=== PATIENT | female | born 1990 | race Caucasian/White ===

== ENCOUNTER 2019-10-16 14:27 | Emergency (ER) | payer OTHER, SELFPAY ==
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
[2019-10-16 14:28] VITALS: BP 137/71; PULSE 72; RESP 18; TEMP 36.4; O2SAT 100
--- NOTE | 2019-10-16 14:34 | PC.NURSE ---
Patient placed in c-collar.
[2019-10-16 14:37] VITALS: BP 137/71; PULSE 72; RESP 16; TEMP 36.4; O2SAT 100
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
== END 2019-10-16 16:15 | disposition home or self-care (01) ==
PROVIDERS: Emergency Provider Emergency Medicine; PCP Emergency Medicine
DX: O26.851 Spotting complicating pregnancy, first trimester (principal); O9A.211 Injury, poisoning and certain other consequences of external causes complicating pregnancy, first trimester; M54.2 Cervicalgia; G89.29 Other chronic pain; Z3A.08 8 weeks gestation of pregnancy; V49.40XA Driver injured in collision with unspecified motor vehicles in traffic accident, initial encounter
CPT/HCPCS: 76801; 99284; L0140

== ENCOUNTER 2020-05-10 20:20 | Observation (INO) | payer OTHER, SELFPAY ==
--- NOTE | 2020-05-10 20:20 | OBADM ---
This patient, Adelita Costa, admitted to the OB room OB Post 116 for observation. Patient/family oriented to hospital policies and general routines including ID bracelet, bed and alarms, visiting hours, pain management, procedures, bathroom and other care routines, personal items, smoking policy, room service/diet, and visiting hours. Patient/Family are encouraged to report perceived risks to care and to ask questions if they do not understand what they are told or what they should do.
[2020-05-10 21:30] VITALS: TEMP 36.3
[2020-05-10 21:39] VITALS: BP 126/80; PULSE 91
[2020-05-10 21:46] VITALS: BP 122/85; PULSE 92
[2020-05-10 22:01] VITALS: BP 130/81; PULSE 96
[2020-05-10 22:16] VITALS: BP 126/83; PULSE 94
[2020-05-10 22:31] VITALS: BP 118/77; PULSE 89
[2020-05-11 04:46] VITALS: BMI 33.7
--- NOTE | 2020-05-25 07:14 | PM.OBTRLD ---
OB - Triage/Final Diagnosis Visit Information Reason for evaluation: threatened labor
== END 2020-05-10 23:15 | disposition home or self-care (01) ==
PROVIDERS: Admitting Provider Obstetrics & Gynecology; PCP Emergency Medicine; Visit Provider Obstetrics & Gynecology
DX: O47.1 False labor at or after 37 completed weeks of gestation (principal); Z3A.37 37 weeks gestation of pregnancy
CPT/HCPCS: G0378; G0379

== ENCOUNTER 2020-07-18 10:05 | Emergency (ER) | payer OTHER, SELFPAY ==
--- NOTE | ~2020-07-18 | CT_ITS ---
EXAMINATION: CT abdomen pelvis w con INDICATION: Left-sided abdominal pain, hematochezia TECHNIQUE: Computed tomographic images of the abdomen and pelvis were obtained after the administrati on of 100 cc of Omnipaque 350 intravenous contrast. The dose-length product (DLP) was 597.20 mGy-cm. Automated exposure control and iterative reconstruction technique were employed. COMPARISON: None available FINDINGS: The lung bases are clear. The heart size is normal. The liver, spleen, pancreas, gallbladde r, and adrenal glands are normal. The kidneys are unremarkable. No pathologically enlarged abdominal or pelvic lymph nodes are identified. There is no free intraperitoneal gas or evidence of bowel obstr uction. A retroaortic left renal vein is noted. There is a trace volume of pelvic ascites. There are areas of subtle fat stranding in the left pericolic gutter. There is a fat-containing umbilical herni a. IMPRESSION: 1. Areas of subtle fat stranding in the left pericolic gutter of unclear significance, possibly refle cting localized inflammation. Reviewed, dictated and finalized at location A. SPORTATION INSPECTOR IMPRESSION: 1. Areas of subtle fat stranding in the left pericolic gutter of unclear signif icance, possibly reflecting localized inflammation.
[2020-07-18 10:10] VITALS: BP 116/77; PULSE 80; RESP 17; TEMP 36.3; O2SAT 98
[2020-07-18 10:29] LABS: Basophils Absolute Auto 0.1 K/mm3 (0.0-0.1); Basophils Percent Auto 0.6 % (0.2-1.2); Eosinophils Absolute Auto 0.1 K/mm3 (0-0.3); Eosinophils Percent Auto 1.2 % (0-4.4); Hemoglobin 14.2 g/dL (12.0-15.0); Immature Granulocyte Absolute 0.03 K/mm3 (0.00-0.031); Immature Granulocyte Percent A 0.3 % (0-0.5); Lymphocytes Absolute Auto 2.17 K/mm3 (0.9-3.2); Lymphocytes Percent Auto 24.5 % (18.3-44.2); Mean Corpuscular HGB Conc 31.6 g/dl (32-36); Mean Corpuscular Hemoglobin 28.6 pg (26-34); Mean Corpuscular Volume 90.7 fl (80-100); Mean Platelet Volume 10.5 fl (7.4-10.4); Monocytes Absolute Auto 0.5 K/mm3 (0.1-0.6); Neutrophils Percent Auto 67.4 % (45.5-73.1); Platelet Count Result 335 k/mm3 (150-375); Red Blood Count 4.96 M/mm3 (4.2-5.4); Red Cell Distribution Width 14.4 % (11.5-14.5); White Blood Count 8.9 K/mm3 (4.5-10.0)
[2020-07-18 10:33] LABS: Add Urine Microscopic? YES; Appearance Urine Clear (Clear); Bilirubin Urine Negative (Negative); Blood Urine Negative (Negative); Color Urine Yellow (Yellow); Glucose Urine UA Negative (Negative); Ketones Urine Negative (Negative); Leukocyte Esterase Ur 1+ LEU/UL (Negative); Mucus Urine Rare /lpf; Nitrate Urine Negative (Negative); Protein Urine 1+ mg/dL (Negative); Specific Grav Ur 1.017 (1.001-1.035); Squamous Epithelial Cell Urine Occasional /hpf (Few); Urobilinogen Urine Negative mg/dL (<2.0); WBC Urine 16-20 /hpf
[2020-07-18 10:41] LABS: Alanine Aminotransferase 25 U/L (4-35); Albumin Level 4.7 g/dL (3.5-5.1); Alkaline Phosphatase 79 U/L (38-126); Anion Gap 10 mmol/L (8-16); Aspartate Amino Transferase 27 U/L (14-36); Bilirubin,Total 0.4 mg/dL (0.2-1.3); Blood Urea Nitrogen 10 mg/dL (7-17); Calcium 9.6 mg/dL (8.4-10.2); Carbon Dioxide 27 mmol/L (22-30); Chloride 104 mmol/L (98-107); Estimated CRCL calculation 116 ml/min; Estimated Glomerular Filt Rate > 60; Glucose 93 mg/dL (65-105); Lipase 64 U/L (23-300); Potassium 3.9 mmol/L (3.4-5.0); Sodium 141 mmol/L (137-145)
--- NOTE | 2020-07-18 11:03 | ED.ABDPAIN ---
HPI - Abdominal Pain General Chief Complaint: Abdominal Pain Stated Complaint: ABD pain 6 weeks post partumn Time Seen by Provider: 07/18/20 10:15 Source: patient Mode of arrival: ambulatory Limitations: no limitations History of Present Illness HPI narrative: This is a 29-year-old female that presents to the emergency department for left-sided abdominal pain x3 days. Reports the pain is constant and sharp. It is worse with palpation and certain movement. Also reports she has had bright red blood in the stool. Does report history of constipation for which she takes Colace daily. Reports some nausea. Reports she is 6 weeks and had a delivery. Her doctor is Dr. Ferrara. Denies fever, vomiting, dysuria, hematuria, or diarrhea. Related Data Allergies Allergy/AdvReac Type Severity Reaction Status Date / Time No Known Allergies Allergy Other Uncoded 07/18/20 10:14 Review of Systems Review of Systems: Narrative: CONSTITUTIONAL: Denies fever GASTROINTESTINAL: Reports abdominal pain, nausea. Denies vomiting, or diarrhea. GENITOURINARY: Denies dysuria or hematuria. All systems reviewed & are unremarkable except as noted in HPI and below PMFSH Surgical History Surgical History (Updated 07/18/20 @ 11:11 by Sangeeta Bundy PA-C) History of section History of tonsillectomy Social History Social History (Updated 07/18/20 @ 11:10 by Sangeeta Bundy PA-C) Smoking status: Never smoker Substance use: never Gender identity (if verbalized by the patient): Female Exam Narrative: Exam Narrative: GENERAL: Well-appearing, well-nourished, and in no acute distress. HEAD: Normocephalic, atraumatic. EYES: EOMI. CHEST: Clear to auscultation. No respiratory distress. No wheezes rales or rhonchi HEART: Regular rate and rhythm. No murmur heard. Normal peripheral pulses. ABDOMEN: Soft, nondistended, normal active bowel sounds. Tender to palpation of left mid abdomen, without guarding. No CVA tenderness EXTREMITIES: Normal range of motion. No edema. SKIN: Warm, dry, no rash. NEURO: No focal deficits. Alert and oriented x3. PSYCH: Normal mood and affect RECTAL: Nonthrombosed hemorrhoid present, no active bleeding Course Vital Signs Vital signs: Vital Signs Temperature 97.4 F L 07/18/20 10:10 Pulse Rate 80 07/18/20 10:10 Respiratory Rate 17 07/18/20 10:10 Blood Pressure 116/77 07/18/20 10:10 Pulse Oximetry 98 07/18/20 10:10 Temperature 97.4 F L 07/18/20 10:10 Pulse Rate 80 07/18/20 10:10 Respiratory Rate 17 07/18/20 10:10 Blood Pressure 116/77 07/18/20 10:10 Pulse Oximetry 98 07/18/20 10:10 MDM - Abdominal Pain MDM Narrative Medical decision making narrative: Patient presents the emergency department for left-sided abdominal pain for the last 3 days. Is 6 weeks and had delivery. Patient is afebrile and nontoxic-appearing. CBC and metabolic panel are normal. Lipase is normal. UA with 16-20 white blood cells and 1+ leuk esterase, also with squamous epithelial cells. Patient does not have any urinary symptoms. We will send this for culture. CT scan abdomen and pelvis shows nonspecific fat stranding in the left pericolic gutter of unclear significance. Spoke with radiologist about this finding, could be from retraction instrumentation due to her . Pain is worse with movement, spoke with patient about this possibly being due to her continuing to heal after her surgery. Wanted to get a hold of her FACILITATOR to make aware of work-up and ensure follow-up. Patient would like to be discharged. She was instructed to return at any time for any worsening symptoms or concerns. She is to follow-up with her FACILITATOR Lab Data Attestation: I reviewed the patient's lab results. Result diagrams: 07/18/20 10:18 07/18/20 10:18 Labs: Lab Results 07/18/20 07/18/20 07/18/20 Range/Units 10:18 10:18 10:18 WBC 8.9 (4.5-
--- NOTE | 2020-07-18 11:08 | PC.NURSE ---
received report from May SHAW. resting on stretcher. all labs resulted. waiting to get CT done. has call light in reach. denies needs.
--- NOTE | 2020-07-18 12:39 | PC.NURSE ---
CT resulted. waiting for further orders vs disposition from provider.
--- NOTE | 2020-07-18 13:50 | PC.NURSE ---
provider at bedside to review test results.
[2020-07-18 14:08] VITALS: BP 112/70; PULSE 78; RESP 18; TEMP 36.6; O2SAT 100
== END 2020-07-18 14:10 | disposition home or self-care (01) ==
PROVIDERS: Emergency Provider Emergency Medicine; PCP Emergency Medicine
DX: O90.89 Other complications of the puerperium, not elsewhere classified (principal); R10.9 Unspecified abdominal pain
CPT/HCPCS: 36415; 74177; 80053; 81001; 81025; 83690; 85025; 87086; 99284; Q9967

== ENCOUNTER 2021-08-08 11:19 | Emergency (ER) | payer OTHER, SELFPAY ==
[2021-08-08 11:22] VITALS: BP 118/78; PULSE 98; RESP 18; TEMP 36.1; O2SAT 99
[2021-08-08] MEDS: ONDANSETRON INJ 4 MG/2 ML VIAL IV PUSH (11:51)
--- NOTE | 2021-08-08 11:51 | ED.NAVMDI ---
HPI - Nausea/Vomiting/Diarrhea General Chief complaint: Nausea/Vomiting/Diarrhea Stated complaint: 16 weeks pg vomiting Time Seen by Provider: 08/08/21 11:33 Source: patient Mode of arrival: ambulatory Limitations: no limitations History of Present Illness HPI Narrative: This is a 30-year-old G3, P1 about 16 weeks that presents to the emergency department for nausea, vomiting and diarrhea. Reports it seems as though viral illnesses going through the family. Her mother and significant other are also sick. Reports since last night she has had several episodes of vomiting. She has not been able to keep anything down today. Her OB is Dr. Ferrara. Denies fever, dysuria, vaginal bleeding, or pelvic cramping. Related Data Allergies Allergy/AdvReac Type Severity Reaction Status Date / Time No Known Allergies Allergy Other Uncoded 05/07/21 12:07 Review of Systems Review of Systems: CONSTITUTIONAL: Denies fever GASTROINTESTINAL: Reports abdominal pain, nausea, vomiting, and diarrhea. GENITOURINARY: Denies dysuria All systems reviewed & are unremarkable except as noted in HPI and below PMFSH Past Medical History Medical History (Updated 08/08/21 @ 15:41 by Sangeeta Bundy PA-C) deliv due to previous difficult deliv, deliv, curr hospitaliz Surgical History Surgical History History of section History of tonsillectomy Social History Social History (Updated 05/07/21 @ 12:05 by Tara Cortes CNA) Smoking status: Never smoker Second hand tobacco smoke exposure: No Alcohol intake: current Alcohol use details: a glass of wine here and there Substance use: never Gender identity (if verbalized by the patient): Female Exam Narrative: GENERAL: Well-appearing, well-nourished, and in no acute distress. HEAD: Normocephalic, atraumatic. EYES: EOMI. CHEST: Clear to auscultation. No respiratory distress. No wheezes rales or rhonchi HEART: Regular rate and rhythm. No murmur heard. Normal peripheral pulses. ABDOMEN: Gravid, nontender, nondistended, normal active bowel sounds. EXTREMITIES: Normal range of motion. No edema. SKIN: Warm, dry, no rash. NEURO: No focal deficits. Alert and oriented x3. PSYCH: Normal mood and affect Course Consultations Consultation #1: Spoke with patient's OB about work-up who will follow-up in clinic Date: 08/08/21 Time: 15:00 Vital Signs Vital signs: Vital Signs Temperature 97.0 F L 08/08/21 11:22 Pulse Rate 98 08/08/21 11:22 Respiratory Rate 18 08/08/21 11:22 Blood Pressure 118/78 08/08/21 11:22 Pulse Oximetry 99 08/08/21 11:22 Temperature 97.0 F L 08/08/21 11:22 Pulse Rate 98 08/08/21 11:22 Respiratory Rate 18 08/08/21 11:22 Blood Pressure 118/78 08/08/21 11:22 Pulse Oximetry 99 08/08/21 11:22 MDM - Nausea/Vomiting/Diarrhea MDM Narrative Medical decision making narrative: Patient presents emergency department for nausea, vomiting and diarrhea. She is afebrile and nontoxic-appearing. Her vitals are stable. CBC with mild leukocytosis to 13.4. Metabolic panel and lipase without concerning findings. UA without evidence of infection. Does show some dehydration. Patient hydrated with 2 L of IV fluids in the ED. Given doses of antiemetics with relief. Able to tolerate p.o. challenge. Normal heart tones. Spoke with patient's OB about work-up who will follow-up in clinic. Patient is stable and felt appropriate for further outpatient evaluation. She was given warnings to return to the ER Lab Data Attestation: I reviewed the patient's lab results. Result diagrams: 08/08/21 11:50 08/08/21 11:50 Labs: Lab Results 08/08/21 08/08/21 08/08/21 Range/Units 11:50 11:50 11:50 WBC 13.4 H (4.5-10.0) K/mm3 RBC 4.48 (4.2-5.4) M/mm3 Hgb 13.9 (12.0-15.0) g/dL Hct 39.9 (37.0-47.0) % MCV 89.1 (80-100) fl MCH
[2021-08-08] MEDS: FAMOTIDINE 20 MG/2 ML VIAL IV PUSH (11:52)
[2021-08-08] MEDS: SODIUM CHLORIDE 0.9% IV 1,000 ML 999 ML IV CONT ×2 (11:52→13:04)
[2021-08-08 12:10] LABS: Basophils Percent Auto 0.2 % (0.2-1.2); Eosinophils Absolute Auto 0.1 K/mm3 (0-0.3); Eosinophils Percent Auto 0.4 % (0-4.4); Hematocrit 39.9 % (37.0-47.0); Hemoglobin 13.9 g/dL (12.0-15.0); Immature Granulocyte Absolute 0.05 K/mm3 (0.00-0.031); Immature Granulocyte Percent A 0.4 % (0-0.5); Lymphocytes Absolute Auto 0.75 K/mm3 (0.9-3.2); Lymphocytes Percent Auto 5.6 % (18.3-44.2); Mean Corpuscular HGB Conc 34.8 g/dl (32-36); Mean Corpuscular Volume 89.1 fl (80-100); Mean Platelet Volume 10.7 fl (7.4-10.4); Monocytes Absolute Auto 0.5 K/mm3 (0.1-0.6); Neutrophils Absolute Auto 11.9 K/mm3 (1.3-6.7); Neutrophils Percent Auto 89.4 % (45.5-73.1); Platelet Count Result 304 k/mm3 (150-375); Red Blood Count 4.48 M/mm3 (4.2-5.4); Red Cell Distribution Width 12.4 % (11.5-14.5); White Blood Count 13.4 K/mm3 (4.5-10.0)
[2021-08-08 12:20] LABS: Alanine Aminotransferase 10 U/L (4-35); Albumin Level 4.3 g/dL (3.5-5.1); Alkaline Phosphatase 71 U/L (38-126); Anion Gap 9 mmol/L (8-16); Aspartate Amino Transferase 17 U/L (14-36); Bilirubin,Total 0.7 mg/dL (0.2-1.3); Blood Urea Nitrogen 7 mg/dL (7-17); Calcium 9.2 mg/dL (8.4-10.2); Carbon Dioxide 24 mmol/L (22-30); Chloride 100 mmol/L (98-107); Estimated CRCL calculation 164 ml/min; Estimated Glomerular Filt Rate > 60; Glucose 91 mg/dL (65-110); Lipase 61 U/L (23-300); Potassium 3.9 mmol/L (3.4-5.0); Sodium 133 mmol/L (137-145)
[2021-08-08 12:32] LABS: Add Urine Microscopic? YES; Appearance Urine Cloudy (Clear); Bacteria Urine Trace /hpf; Bilirubin Urine Negative (Negative); Blood Urine Negative (Negative); Color Urine Yellow (Yellow); Glucose Urine UA Negative (Negative); Ketones Urine 1+ mg/dL (Negative); Leukocyte Esterase Ur Negative LEU/UL (Negative); Mucus Urine Few /lpf; Nitrate Urine Negative (Negative); Protein Urine 1+ mg/dL (Negative); Squamous Epithelial Cell Urine Many /hpf (Few); WBC Urine 0-3 /hpf
[2021-08-08 13:35] VITALS: BP 126/88; PULSE 80; RESP 15; O2SAT 99
[2021-08-08] MEDS: diphenhydrAMINE HCl INJ 50 MG/ML VIAL 25 MG IV PUSH (14:07)
[2021-08-08] MEDS: METOCLOPRAMIDE HCL INJ 10 MG/2 ML VIAL IV PUSH (14:07)
[2021-08-08] MEDS: SODIUM CHLORIDE 0.9% IV 50 ML 400 ML (14:08)
[2021-08-08 15:47] VITALS: BP 119/64; PULSE 80; RESP 16; O2SAT 99
== END 2021-08-08 15:50 | disposition home or self-care (01) ==
PROVIDERS: Emergency Provider Emergency Medicine; PCP Internal Medicine
DX: O21.9 Vomiting of pregnancy, unspecified (principal); Z3A.16 16 weeks gestation of pregnancy
CPT/HCPCS: 36415; 80053; 81001; 83690; 85025; 96361; 96365; 96366; 96375; 99284; J0131; J1200; J2405; J2765; J7030

== ENCOUNTER 2022-08-09 07:00 | Outpatient (NON) | payer OTHER, SELFPAY | END 2022-08-09 07:01 | disposition home or self-care (01) | LOC: ANHLAB 08-10 12:34 | PROVIDERS: PCP Internal Medicine; Visit Provider Nurse Practitioner | DX: D22.39 Melanocytic nevi of other parts of face (principal) | CPT/HCPCS: 88305 ==

== ENCOUNTER → 2022-12-29 11:34 | Outpatient (CLI) | payer OTHER, SELFPAY ==
--- NOTE | ~2022-12-29 | MR_ITS ---
MRI of the cervical spine Clinical History: Cervicalgia Technique: Axial T2-weighted and gradient images, and sagittal T1-weighted, T2-weighted, and STIR veronica ges were acquired. Findings: There is no fracture or subluxation of the cervical spine. Vertebral bodies maintain normal height and alignment. No suspicious bone marrow signal abnormality seen. There is minimal degenerative disc change at C4-C5 and C5-C6. No disc bulge or herniation seen at any cervical level. No spinal canal stenosis, cord compression, or neural foraminal narrowing identified in the cervical spine. No abnormal signal seen in the spinal cord. Paravertebral soft tissues are unremarkable. Impression: Minimal degenerative disc change at C4-C5 and C5-C6, otherwise unremarkable exam. Reviewed, dictated and finalized at location M. Impression: Minimal degenerative disc change at C4-C5 and C5-C6, otherwise unremarkable jeff moscoso
== END ==
PROVIDERS: PCP Internal Medicine; Visit Provider Nurse Practitioner Family
DX: M54.2 Cervicalgia (principal)
CPT/HCPCS: 72141

== ENCOUNTER 2023-02-19 08:23 | Emergency (ER) | payer OTHER, SELFPAY ==
--- NOTE | ~2023-02-19 | CT_ITS ---
EXAMINATION: CT abdomen pelvis wo con DATE: 02/19/2023 10:48 INDICATION: Flank pain. Hematuria. TECHNIQUE: Computed tomography (CT) of the abdomen and pelvis was performed without intravenous contr ast. The dose-length product was 421.98 mGy-cm. Automated exposure control and iterative reconstructi on technique were employed. COMPARISON: None. FINDINGS: Lung bases are unremarkable. No significant pleural or pericardial effusion. Small fat-cont aining umbilical hernia. Small amount of free fluid in the pelvis. There is a 3 mm nonobstructing left renal stone. Bladder is decompressed. The liver, spleen, pancreas, adrenal glands and right kidney are unremarkable. No free air or free fl uid. Gallbladder is present. No free air. Nonobstructive bowel gas pattern. There are small ileocolic lymph nodes, likely reactive. No significant vascular abnormality. No retroperitoneal lymphadenopath y. IMPRESSION: 1. Nonobstructing left nephrolithiasis. Reviewed, dictated and finalized at location A.
[2023-02-19 08:25] VITALS: BP 121/75; PULSE 71; RESP 16; TEMP 36.2; O2SAT 98
[2023-02-19 08:52] LABS: Basophils Absolute Auto 0.1 K/mm3 (0.0-0.1); Basophils Percent Auto 0.8 % (0.2-1.2); Eosinophils Absolute Auto 0.1 K/mm3 (0-0.3); Eosinophils Percent Auto 0.8 % (0-4.4); Hematocrit 42.1 % (37.0-47.0); Hemoglobin 13.7 g/dL (12.0-15.0); Immature Granulocyte Absolute 0.01 K/mm3 (0.00-0.031); Immature Granulocyte Percent A 0.1 % (0-0.5); Lymphocytes Absolute Auto 2.28 K/mm3 (0.9-3.2); Lymphocytes Percent Auto 32.2 % (18.3-44.2); Mean Corpuscular HGB Conc 32.5 g/dl (32-36); Mean Corpuscular Hemoglobin 29.9 pg (26-34); Mean Corpuscular Volume 91.9 fl (80-100); Mean Platelet Volume 10.2 fl (7.4-10.4); Monocytes Absolute Auto 0.4 K/mm3 (0.1-0.6); Monocytes Percent Auto 5.4 % (2.6-8.5); Neutrophils Absolute Auto 4.3 K/mm3 (1.3-6.7); Neutrophils Percent Auto 60.7 % (45.5-73.1); Platelet Count Result 277 k/mm3 (150-375); Red Blood Count 4.58 M/mm3 (4.2-5.4); Red Cell Distribution Width 12.5 % (11.5-14.5); White Blood Count 7.1 K/mm3 (4.5-10.0)
[2023-02-19 09:01] LABS: Alanine Aminotransferase 22 U/L (6-35); Albumin Level 4.4 g/dL (3.5-5.1); Alkaline Phosphatase 40 U/L (38-126); Anion Gap 6 mmol/L (8-16); Aspartate Amino Transferase 21 U/L (14-36); Bilirubin,Total 0.6 mg/dL (0.2-1.3); Blood Urea Nitrogen 14 mg/dL (7-17); Calcium 9.1 mg/dL (8.4-10.2); Carbon Dioxide 32 mmol/L (22-30); Chloride 101 mmol/L (98-107); Estimated CRCL calculation 98 ml/min; Estimated Glomerular Filt Rate > 60; Glucose 101 mg/dL (65-110); Sodium 139 mmol/L (137-145)
[2023-02-19] MEDS: ONDANSETRON INJ 4 MG/2 ML VIAL IV PUSH (09:02)
[2023-02-19] MEDS: SODIUM CHLORIDE 0.9% IV 1,000 ML 999 ML IV CONT (09:02)
[2023-02-19 09:08] LABS: Atypical Lymphocytes Present; Platelet Estimate Adequate (Adequate); Schistocytes None Seen (NORMAL)
[2023-02-19 09:30] LABS: Add Urine Microscopic? YES; Appearance Urine Cloudy (Clear); Bacteria Urine 1+ /hpf; Bilirubin Urine 1+ (Negative); Blood Urine Negative (Negative); Color Urine Dark Yellow (Yellow); Glucose Urine UA Negative (Negative); Ketones Urine Negative (Negative); Leukocyte Esterase Ur 1+ LEU/UL (Negative); Need Manual Microscopic Reviewed; Nitrate Urine Positive (Negative); Non Pathogenic Casts 0-2; Protein Urine 1+ mg/dL (Negative); Specific Grav Ur 1.019 (1.001-1.035); Squamous Epithelial Cell Urine Many /hpf (Few); WBC Urine 0-5 /hpf; pH Urine 6.5 (5.0-9.0)
[2023-02-19 09:37] VITALS: BP 112/74; PULSE 64; RESP 18; O2SAT 100
[2023-02-19 10:39] VITALS: BP 110/69; PULSE 67; RESP 20; O2SAT 98
--- NOTE | 2023-02-19 12:02 | ED.GENADULT ---
HPI - General Adult General Chief complaint: Urogenital-Female Stated complaint: kidney infection Time Seen by Provider: 02/19/23 08:28 History of Present Illness HPI narrative: Patient is a 32-year-old female who presents ER with concerns for UTI. Began having burning urination hematuria yesterday. Associated with epigastric pain tachycardia and nausea. No fevers or chills or sweats. She took some leftover ciprofloxacin as well as Azo to treat her discomfort. No diarrhea. No additional concerns. Related Data Allergies Allergy/AdvReac Type Severity Reaction Status Date / Time No Known Allergies Allergy Other Uncoded 02/19/23 08:46 Review of Systems Review of Systems: All systems reviewed & are unremarkable except as noted in HPI and below Constitutional: Constitutional: Denies chills and Denies fever(s) Gastrointestinal: Gastrointestinal: Reports abdominal pain, Denies diarrhea, Reports nausea and Denies vomiting Genitourinary: Genitourinary: Reports hematuria, Reports nocturia, Reports dysuria and Denies flank pain PMFSH Past Medical History Medical History (Reviewed 01/09/23 @ 15:05 by Adilene Ha [facility]) Axillary abscess Cervicalgia deliv due to previous difficult deliv, deliv, curr hospitaliz Upper back pain, chronic Surgical History Surgical History (Reviewed 01/09/23 @ 15:05 by Adilene Ha [facility]) History of section History of tonsillectomy Social History Social History (Reviewed 01/09/23 @ 15:05 by Adilene Ha [facility]) Smoking status: Never smoker Second hand tobacco smoke exposure: No Alcohol intake: current Alcohol use details: a glass of wine here and there Substance use: never Lack of Transportation: No Lack of Food: Never True Current Housing: I Have Housing Concerned About Future Housing: No Difficulty Paying Gas/Electric Bills: No Difficulty Paying for Meds: No Currently Unemployed: No Education: Bachelor's Degree Difficulty w/ Childcare or Family Care: No Gender identity (if verbalized by the patient): Female Course Course Emergency Course: Patient resting comfortably. Informed of results. Will give 3 days of antibiotics Estraguard burst will treat her UTI. Patient could have passed a kidney stone but she does have a nephrolithiasis. Vital Signs Vital signs: Vital Signs Temperature 97.1 F L 02/19/23 08:25 Pulse Rate 71 02/19/23 08:25 Respiratory Rate 16 02/19/23 08:25 Blood Pressure 121/75 02/19/23 08:25 Pulse Oximetry 98 02/19/23 08:25 Oxygen Delivery Room Air 02/19/23 08:25 Temperature 97.1 F L 02/19/23 08:25 Pulse Rate 67 02/19/23 10:39 Respiratory Rate 20 02/19/23 10:39 Blood Pressure 110/69 02/19/23 10:39 Pulse Oximetry 98 02/19/23 10:39 Oxygen Delivery Room Air 02/19/23 08:25 Medical Decision Making Vital Signs Vital Signs: Vital Signs Temperature 97.1 F L 02/19/23 08:25 Pulse Rate 71 02/19/23 08:25 Respiratory Rate 16 02/19/23 08:25 Blood Pressure 121/75 02/19/23 08:25 Pulse Oximetry 98 02/19/23 08:25 Oxygen Delivery Room Air 02/19/23 08:25 Temperature 97.1 F L 02/19/23 08:25 Pulse Rate 67 02/19/23 10:39 Respiratory Rate 20 02/19/23 10:39 Blood Pressure 110/69 02/19/23 10:39 Pulse Oximetry 98 02/19/23 10:39 Oxygen Delivery Room Air 02/19/23 08:25 Lab Data 02/19/23 08:41 02/19/23 08:41 Labs: Lab Results 02/19/23 02/19/23 Range/Units 08:41 09:07 WBC 7.1 (4.5-10.0) K/mm3 RBC 4.58 (4.2-5.4) M/mm3 Hgb 13.7 (12.0-15.0) g/dL Hct 42.1 (37.0-47.0) % MCV 91.9 (80-100) fl MCH 29.9 (26-34) pg MCHC 32.5 (32-36) g/dl RDW 12.5 (11.5-14.5) % Plt Count 277 (150-375) k/mm3 MPV 10.2 (7.4-10.4) fl Immature Gran % (Auto) 0.1 (0-0.5) % Neut % (Auto) 60.7 (45.5-73.1) % Lymph % (Auto) 32.2 (18.3-44.2) % [place] % (Auto) 5.4 (2.6-8.5) %
[2023-02-19 12:38] VITALS: BP 130/84; PULSE 76; RESP 16; O2SAT 98
== END 2023-02-19 12:39 | disposition home or self-care (01) ==
PROVIDERS: Emergency Provider Emergency Medicine; PCP Internal Medicine
DX: N39.0 Urinary tract infection, site not specified (principal); N20.0 Calculus of kidney
CPT/HCPCS: 36415; 74176; 80053; 81001; 81025; 85025; 96361; 96374; 99284; J2405; J7030

== ENCOUNTER 2024-06-10 14:30 | Emergency (ER) | payer OTHER, SELFPAY ==
--- NOTE | 2024-06-10 14:31 | ED.WOUNDLAC ---
HPI - Wound/Laceration General Chief Complaint: Wound/Laceration Stated Complaint: Cut Hand Time Seen by Provider: 06/10/24 14:31 Source: patient Mode of arrival: ambulatory Limitations: no limitations History of Present Illness HPI narrative: Kimmy is a 33-year-old female patient presenting to the clinic today with complaints of a left palm hand laceration. She reports she cut it approximately 30 minutes on a chisel. Tetanus last was 2019. Bleeding is controlled. Related Data Allergies Allergy/AdvReac Type Severity Reaction Status Date / Time No Known Allergies Allergy Other Uncoded 06/10/24 14:35 Review of Systems Review of Systems: Pertinent positives per HPI. Patient denies any fever, chills, rash, headache, visual changes, dizziness, cough, runny nose, sore throat, shortness of breath, chest pain, palpitations, nausea, vomiting, diarrhea, constipation, abdominal pain, or any urinary issues. PMFSH Past Medical History Medical History Axillary abscess Cervicalgia deliv due to previous difficult deliv, deliv, curr hospitaliz Upper back pain, chronic Surgical History Surgical History H/O gynecological procedure IUD insertion/removal History of section x 2 History of hysteroscopy D & C History of tonsillectomy Social History Social History Smoking status: Never smoker Second hand tobacco smoke exposure: No Alcohol intake: current Alcohol use details: a glass of wine here and there Substance use: never Lack of Transportation: No Lack of Food: Never True Current Housing: I Have Housing Concerned About Future Housing: No Difficulty Paying Gas/Electric Bills: No Difficulty Paying for Meds: No Currently Unemployed: No Education: Bachelor's Degree Difficulty w/ Childcare or Family Care: No Gender identity (if verbalized by the patient): Female Comments At the time of my signature, I reviewed and agree with the nursing past medical, surgical, social, and family history. There is no relevant family history pertinent to the patient complaint. Exam Narrative: General: Well-developed, well nourished, in no apparent distress Head: Normocephalic, atraumatic. Cardio: Regular rate and rhythm, s1 and s2 normal, no murmur appreciated. Resp: Clear to auscultation bilaterally, no rhonchi, rales, wheezing or rubs. Integumentary: [place], warm, and dry, 1 cm laceration with mild gaping to the left palm proximal of the left thumb. Course Course Emergency Course: Portions of this record may have been created with voice recognition software. Level of Care: Express Care Visit Vital Signs Vital signs: Vital signs reviewed Procedures Laceration Laceration 1: Date: 06/10/24 Site: hand Side (If applicable): left Size (cm): 1 Description: linear Depth: simple, single layer Local Anesthetic: lidocaine 1% Amount of anesthesia used (mL): 1 Pre-repair: wound explored and irrigated ====== Skin Level ====== Skin layer closed with: nylon Size (cm): 5-0 Number of sutures: 3 Technique: simple, interrupted ====== Subcutaneous Layer ====== ====== Muscle Layer ====== ====== Tendon Layer ====== Dressing: Verbal consent obtained for laceration repair. Risk and benefits explained and patient voiced understanding. Area was cleansed with antiseptic wound wash and a 27 gauge needle was then used to instill (1) ml of 1% lidocaine without epi into the wound edges. Area was prepped and draped using sterile technique. A 5-0 suture on a p needle was used to place (3) interrupted sutures bringing the wound edges together- well approximated. Patient tolerated procedure well. Triple antibiotic oi
[2024-06-10 14:37] VITALS: BP 126/80; PULSE 90; RESP 18; TEMP 36.3; O2SAT 98
[2024-06-10] MEDS: TETANUS,DIPHTHERIA,AC PERTUSSIS ADULT (0.5 ML) BOOSTRIX IM (15:03)
== END 2024-06-10 15:18 | disposition home or self-care (01) ==
PROVIDERS: Emergency Provider Nurse Practitioner Family; PCP Internal Medicine
DX: S61.412A Laceration without foreign body of left hand, initial encounter (principal); W27.0XXA Contact with workbench tool, initial encounter; Z23 Encounter for immunization
CPT/HCPCS: 12001; 90471; 90715; 99212; G0463

== ENCOUNTER 2024-06-23 08:50 | Emergency (ER) | payer OTHER, SELFPAY ==
[2024-06-23 09:01] VITALS: BP 115/82; PULSE 98; RESP 16; TEMP 36.9; O2SAT 97
--- NOTE | 2024-06-23 09:57 | ED.URI ---
HPI - URI/Sore Throat General Chief Complaint: Upper Respiratory Infection Stated Complaint: Cough/Sore Throat Source: patient Mode of arrival: ambulatory Limitations: no limitations History of Present Illness HPI Narrative: 33 y/o female presented for c/o cough and chest congestion, sore throat, and head pressure x12 days. Taking mucinex. denies sob, wheezing, n/v/d/f/c. Related Data Allergies Allergy/AdvReac Type Severity Reaction Status Date / Time No Known Allergies Allergy Other Uncoded 06/10/24 14:35 Review of Systems Review of Systems: CONSTITUTIONAL: Denies body aches, fever, chills, or sweats. EYES: Denies visual changes, redness, or discharge. ENT: Denies rhinorrhea, congestion, reports sore throat, bilateral otalgia. CARDIOVASCULAR: Denies chest pain, palpitations, or edema. RESPIRATORY: Reports cough, denies sob, wheezing. GASTROINTESTINAL: Denies abdominal pain, nausea, vomiting, or diarrhea. 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, deliv, curr hospitaliz Upper back pain, chronic Surgical History Surgical History H/O gynecological procedure IUD insertion/removal History of section x 2 History of hysteroscopy D & C History of tonsillectomy Social History Social History Smoking status: Never smoker Second hand tobacco smoke exposure: No Alcohol intake: current Alcohol use details: a glass of wine here and there Substance use: never Lack of Transportation: No Lack of Food: Never True Current Housing: I Have Housing Concerned About Future Housing: No Difficulty Paying Gas/Electric Bills: No Difficulty Paying for Meds: No Currently Unemployed: No Education: Bachelor's Degree Difficulty w/ Childcare or Family Care: No Gender identity (if verbalized by the patient): Female Comments At time of signature, I have reviewed and agree with nursing past medical, surgical, social and family history unless otherwise noted. Please see nursing chart for further information. There is no relevant family history pertinent to the presenting complaint Exam Narrative: GENERAL: mildly ill-appearing, in no acute distress. EYES: EOMI. No redness or drainage. Conjunctivae normal. ENT: Mucous membranes pink and moist. No rhinorrhea. TMs normal bilaterally. Throat normal. Uvula midline. NECK: Normal AROM. Supple. CHEST: No respiratory distress. mild coarse sounds to right lung hall, otherwise clear. HEART: Regular rate and rhythm. No murmur appreciated. SKIN: Warm, dry, no rash. Capillary refill normal. Normal skin turgor. NEURO: Alert and oriented x3. Gait steady. PSYCH: Normal affect. Course Course Emergency Course: Patient is aware of diagnosis, understands and agrees to treatment plan. Anticipatory guidance given. Patient agrees to follow-up as directed and is aware of reasons to seek care at the emergency department. Portions of this record may have been created with voice recognition software Level of Care: Express Care Visit Vital Signs Vital signs: Vital Signs Temperature 98.5 F 06/23/24 09:01 Pulse Rate 98 06/23/24 09:01 Respiratory Rate 16 06/23/24 09:01 Blood Pressure 115/82 06/23/24 09:01 Pulse Oximetry 97 06/23/24 09:01 Temperature 98.5 F 06/23/24 09:01 Pulse Rate 98 06/23/24 09:01 Respiratory Rate 16 06/23/24 09:01 Blood Pressure 115/82 06/23/24 09:01 Pulse Oximetry 97 06/23/24 09:01 MDM - URI/Sore Throat MDM Narrative Medical decision making narrative: Discussed physical exam findings. Advised supportive measures and signs/symptoms to go to the ER. Pt is appropriate for outpt treatment and f/u. Differential Diagnosis Differential diagnosis: Likely upper respiratory infection, otitis media, sinusitis, viral infection, bronchitis, influenza and pharyngitis Discharge Plan Discharge Clinical Impression: Acute lower respiratory infection Patient Disposition: Home, Self-Care Condition: Stable Instructions: Antibiotic Form, Acute Bronchitis (ED), Pneumonia (ED) Additional Instructions: Acute bronchitis can be contagious because it is usually caused by infection with a virus or bacteria. It is usually for a few days but you can be contagious for up to one week. Avoid crowds until you do not have a fever and symptoms are improved Take medication as directed Recommend Flonase spray and Zyrtec (or Claritin/Kathe) if you have head congestion over the counter Cough syrup may cause drowsiness; avoid driving or take it at night time. Tylenol 1000mg every 8 hours as needed for pain Symptomatic treatment includes: rest, fluids, and increase humidity of the air at home. Follow up with your primary care provider as needed in 1 week Go to the ER for worsening symptoms or concerns Prescriptions: New amoxicillin 500 mg tablet 1,000 mg PO Q8H 7 Days Qty: 42 0RF methylprednisolone [Medrol (Luis)] 4 mg tablets,dose pack See Rx Instructions .ROUTE .COMPLEX Qty: 21 0RF Rx Instructions: orally per package directions No Action duloxetine 60 mg capsule,delayed release(DR/EC) 60 mg PO DAILY Qty: 90 3RF Follow-up/Referrals: Barrie Lopez DO [Primary Care Provider] - Time of Disposition: 10:06
== END 2024-06-23 10:07 | disposition home or self-care (01) ==
PROVIDERS: Emergency Provider Nurse Practitioner Family; PCP Internal Medicine
DX: J22 Unspecified acute lower respiratory infection (principal)
CPT/HCPCS: 99213; G0463

== ENCOUNTER 2025-02-13 11:25 | Outpatient (CLI) | payer OTHER, SELFPAY ==
[2025-02-13 12:09] LABS: Hematocrit 41.9 % (37.0-47.0); Hemoglobin 13.8 g/dL (12.0-15.0)
--- OUTSIDE RECORDS SUMMARY | 2025-02-13 12:35 | XMS_ITS | Encounter Summary ---
Author Organization [facility] Address [address] [place] [address] Care Team Providers Care Cigarette Machines Mechanic Name Role Phone Zuhair Tapia MD Primary Care Provider [phone] Encounter Details Date Type Department Care Team (Late st Contact Info) Description 08/08/2003 Outpatient Historical [facility] Alysha Everett MD [address] [place] [address] Er, Authorized P NO ADDRESS ON FILE FX MEDIAL MALLEOLUS-CLOSE (Primary Dx) Social History Tobacco Use Types Packs/Day Years Used Date Smoking Tobacco: Never Assessed Comments Unknown Sex and Gender Information Value Date Recorded Sex Assigned at Not on file 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
--- OUTSIDE RECORDS SUMMARY | 2025-02-13 12:35 | XMS_ITS | Encounter Summary ---
Author Organization [email or web address] Address 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
--- OUTSIDE RECORDS SUMMARY | 2025-02-13 12:35 | XMS_ITS | Encounter Summary ---
Author Organization [employer] [facility] Address [address] [place] [address] Care Team Providers Care Manager Company Name Role Phone Zuhair Tapia MD Primary Care Provider [phone] Encounter Details Date Type Department Care Team (Late st Contact Info) Description 08/13/2003 Outpatient Historical [facility] [place], Karina Harrison MD NO ADDRESS ON FILE FX MEDIAL MALLEOLUS-CLOSE (Primary Dx) Social History Tobacco Use Types Packs/Day Years Used Date Smoking Tobacco: Never Assessed Comments Unknown Sex and Gender Information Value Date Recorded Sex Assigned at Not on file Legal Sex Female 3:26 AM STUDENT NURSE Gender Identity Not on file Sexual Orientation Not on file documented as of this encounter Plan of Treatment Not on file documented as of this encounter Visit Diagnoses Diagnosis Closed fracture of medial malleolus- Primary documented in this encounter Care Teams Manager Company Relationship Specialty Start Date End Date Zuhair Tapia MD [address] [place] [address] PCP - General Family Practice 12/27/19 documented as of this encounter
--- OUTSIDE RECORDS SUMMARY | 2025-02-13 12:35 | XMS_ITS | Clinical Summary ---
Author Organization [facility] Address [address] [place] [address] Phone Care Team Providers Care Terminal System Operator Name Role Phone Zuhair Tapia MD Primary Care Provider [phone] Allergies No known active allergies Medications vit-iron fumarate-fa (SAMARA ) 28 mg iron- 800 mcg Tablet Take 1 Tablet by mouth daily. Active oxyCODONE (ROXICODONE) 5 mg tabletIndicatio ns:Encounter for elective induction of labor Take 1 Tablet (5 mg) by mouth every 4 hours as needed for Pain. Max Daily Amount: 6 tablets 10 Tablet 06/06/2020 9:43 AM CDT 0 Active ibuprofen (MOTRIN) 600 mg tablet Take 1 Tablet (600 mg) by mouth 4 times daily as needed for pain. 60 Tablet 01/20/2022 12:00 PM CDT 2 Active naloxone (NARCAN) 4 mg/spray [place], Non-Aerosol Administer 1 spray into affected nostril(s) as needed for opioid reversal or respiratory depression Call 911. Administer a single spray in one nostril. Repeat every 3 minutes as needed if no or minimal response. 2 Each 2 Active oxyCODONE-aceta minophen (PERCOCET) 5-325 mg tablet Take 1-2 tablets by mouth every 4 hours as needed for pain. 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 S/P repeat low transverse 01/18/2022 Encounter for elective induction of labor 2019 tachycardia before the onset of labor Immunizations Immunization Administration Dates Next Due (ADACEL/BOOSTRIX)(10 YR UP) TDAP VACCINE, 0.5ML, IM 07/02/2019 (M-M-R II/PRIORIX)(12 MO UP) MEASLES, MUMPS AND RUBELLA VIRUS VACCINE, 0.5 ML IM/SUBCUT 01/19/2022 Family History Relation Name Status Comments Father Alive Mother Alive Social History Tobacco Use Types Packs/Day Years Used Date Smoking Tobacco: Former Cigarettes 0.3 5 0 06/02/2013 - 06/02/2018 Smokeless Tobacco: Never Tobacco Cessation:Counseling Given: Not Answered Alcohol Use Standard Drinks/Week Comments Not Currently 0 (1 standard drink = 0.6 oz pur e alcohol) Feeling Safe Answer Date Recorded Within the last year, have y ou been afraid of your partner or ex-partner? Patient declined 06/02/2020 Within the last year, have y ou been humiliated or emotionally abused in other ways by your partner or ex-partner? Patient declined 06/02/2020 Within the last year, have y ou been kicked, hit, slapped, or otherwise physically hurt by your partner or ex-partner? Patient declined 06/02/2020 Within the last year, have y ou been raped or forced to have any kind of sexual activity by your partner or ex-partner? Patient declined 06/02/2020 Social Connections Answer Date Recorded In a typical week, how many times do you talk on the phone with family, friends, or neighbors? Patient declined 06/02/2020 How often do you get togethe r with friends or relatives? Patient declined 06/02/2020 How often do you attend moravian or pentecostal serv ices? Patient declined 06/02/2020 Do you belong to any clubs o r organizations such as moravian groups, unions, fraternal or athletic groups, or school groups? Patient declined 06/02/2020 How often do you attend meet ings of the clubs or organizations you belong to? Patient declined 06/02/2020 Are you , , di vorced, , never , or living with a partner? Patient declined 06/02/2020 Financial Resource Strain Answer Date R ecorded How hard is it for you to pa y for the very basics like food, housing, medical care, and heating? Not hard at all 06/02/2020 Food Insecurity Answer Date Recorded Within the past 12 months, y ou worried that your food would run out before you got the money to buy more. Patient declined Within the past 12 months, t he food you bought just didn't last and you didn't have money to get more. Patient declined Transportation Needs Answer Date Record ed In the past 12 months, has l ack of transportation kept you from medical appointments or from getting medications? Patient declined 06/02/2020 In the past 12 months, has l ack of transportation kept you from meetings, work, or from getting things needed for daily living? Patient declined 06/02/2020 Comments No Sex and Gender Information Value Date Recorded Sex Assigned at Not on file Legal Sex Female 3:26 AM CLINICAL PROJECT LEADER Gender Identity Not on file Sexual Orientation Not on file Last Filed Vital Signs Vital Sign Reading Time Taken Comments Blood Pressure 115/77 03/08/2022 11:07 AM CDT Pulse 71 03/08/2022 11:07 AM CDT Temperature 36.6 C (97.9 F) 01/20/2022 7:25 AM CDT Respiratory Rate 18 01/20/2022 7:25 AM CDT Oxygen Saturation 98% 01/19/2022 4:58 AM CDT Inhaled Oxygen Concentration - - Weight 81.7 kg (180 lb 1 oz) 05/17/2022 9:04 AM CDT Height 170.2 cm (5' 7) 05/17/2022 9:04 AM CDT Body Mass Index 28.2 05/17/2022 9:04 AM CDT Plan of Treatment Health Maintenance Due Date Last Done Comments HEPATITIS B VACCINES (1 of 3 - 19+ 3-dose series) 11/30/2010 HPV/Cotest (21-29) 11/30/2012 HPV/Cotest (30-65) 11/30/2021 INFLUENZA VACCINE (#1) 2024 CERVICAL CANCER SCREENING 03/02/2025 PAP SMEAR 03/02/2025 03/02/2022 DTAP/TDAP/TD VACCINES (2 - T d or Tdap) 07/02/2029 07/02/2019 HPV VACCINES Aged Out No longer eligi ble based on patient's age to complete this topic Insurance RX [employer] PL[employer] (INTERNAL) [facility] [employer] RX [employer] RX Member Subscriber Plan / Payer (Ef fective 2022-Present) Name:Adelita Costa Relation to Subscriber:Self Name:Adelita Costa Subscriber ID:Not on file Payer ID:Not on file Group ID:[id number] Type:RX Commercial Address: [address] [employer] II Advance Directives For more information, please contact: [phone] * Full Code (Latest Code Status on File) Date Activated Date Inactivated Comments 01/18/2022 12:40 PM 01/20/2022 2:50 PM * Full Code Date Activated Date Inactivated Comments 01/12/2022 12:01 PM 01/12/2022 4:28 PM * Full Code Date Activated Date Inactivated Comments 06/03/2020 11:54 PM 06/06/2020 2:59 PM * Full Code Date Activated Date Inactivated Comments 06/02/2020 9:11 AM 06/03/2020 11:54 PM Care Teams Terminal System Operator Relationship Specialty Start Date End Date Zuhair Tapia MD [address] [place], [place] [address] [address] PCP - General Family Practice 12/27/19
--- OUTSIDE RECORDS SUMMARY | 2025-02-13 12:35 | XMS_ITS | Clinical Summary ---
Author Organization [address] Address [address] [place] [address] Care Team Providers Care Mainspring Strip Gauger Name Role Phone Endy Ferrara MD Unavailable [phone] No, Physician Primary Care Provider [phone] Allergies No known active allergies Medications vits15/iron/foli c/dss ( AD ORAL) Take by mouth Active Hospital, Clinic, or Other Facility Administered Medication Ordered Dose Route Frequency Start Date End Date Status levonorgestreL (MIRENA) 20 mcg/24 hours (7 yrs) 52 mg IUDIndications:Preg andrew Contraception intrauterine Continuous (implanted device) 03/02/2022 7 Active Active Problems Problem Noted Date Diagnosed Date Mechanical complication due to intrauterine contraceptive device 05/19/2022 Overview (05/19/2022): Added automatically from request for surgery [id number] Lactating mother 12/08/2020 Breast skin changes 12/08/2020 Axillary mass, bilateral 06/11/2020 Resolved Problems Problem Noted Date Diagnosed Date Resolved Date Encounter for supervision of normal , antepartum 12/27/2021 03/10/2022 Overview (12/27/2021): First Trimester: [] Initial Labs: Lab Results Component Value Date ABORH O Positive 10/23/2019 IDCOOMB Negative 10/11/2021 [id number] Nonreactive 10/23/2019 LABRPR Nonreactive 10/23/2019 RUBELIGG Reactive 10/23/2019 Lab Results Component Value Date HEPBSAG Nonreactive 10/23/2019 HEPCAB Non-Reactive 10/23/2019 RESSUMCFM NEGATIVE 10/23/2019 Lab Results Component Value Date WBC 9.8 10/11/2021 HGB 11.9 10/11/2021 HCT 37.4 10/11/2021 MCV 94.7 10/11/2021 LABPLAT 304 10/11/2021 Carrier Screening: Aneuploidy screeninnd Trimester: [] Anatomy ultrasound: [] Third trimester Labs: Lab Results Component Value Date [id number] 142 (H) 10/11/2021 Lab Results Component Value Date HGB 11.9 10/11/2021 LABPLAT 304 10/11/2021 Lab Results Component Value Date [id number] Nonreactive 10/23/2019 LABRPR Nonreactive 10/23/2019 [] Tdap (27-36wks) [] Rhogam (if Rh neg): [] GBS: Lab Results Component Value Date MICROBIOLOGY 04/28/2020 Final Report: No Beta-streptococcus Group B isolated Immunizations Immunization Administration Dates Next Due Tdap 07/02/2019 Surgical History Surgery Date Site/Laterality Comments DILATION AND CURETTAGE OF UTERUS SECTION 06/03/20 FRACTURE SURGERY 2004 OTHER SURGICAL HISTORY Mass removed from under arm Medical History Medical History Date Comments Abnormal Pap smear of cervix Family History Medical History Relation Name Comments Hearing loss Maternal Grandfather Kishore Dobson Heart attack Maternal Grandfather Kishore Dobson Hearing loss Maternal Grandmother Patria Early Hypertension Maternal Grandmother Patria Early Rashes / Skin problems Mother Eczema Breast cancer Neg Hx Colon cancer Neg Hx Ovarian cancer Neg Hx Thrombophilia Neg Hx Uterine cancer Neg Hx Relation Name Status Comments Maternal Grandfather Kishore Dobson Maternal Grandmother Patria Early Mother Eczema Social History Tobacco Use Types Packs/Day Years Used Date Smoking Tobacco: Never Smokeless Tobacco: Never Tobacco Cessation:Counseling Given: Not Answered Humiliation, Afraid, Rape, and Kick questionnair e Answer Date Recorded Fear of Current or Ex-Partner No Emotionally Abused No 10/23/2019 Physically Abused No 10/23/2019 Sexually Abused No 10/23/2019 Social Connection and Isolation Panel [NHANES] A nswer Date Recorded Frequency of Communication with Friends and Fami ly Not on file 10/23/2019 Frequency of Social Gatherings with Friends and Family Not on file 10/23/2019 Attends Restoration Services Not on file 10/23 Active Member of Clubs or Organizations Not on f ile 10/23/2019 Attends Club or Organization Meetings Not on no e 10/23/2019 Marital Status 10/23/2019 AUDIT-C Answer Date Recorded Q1: How often do you have a drink containing alc ohol? 2-4 times a month 06/21/2022 Average Number of Drinks Not on file 022 Frequency of Binge Drinking Not on file 06/11 [place] Depression Scale Answer Date Recorded [place] Depression Scale Total 0 01/26/2022 The thought of harming myself has occurred to me . Never 01/26/2022 Comments No Sex and Gender Information Value Date Recorded Sex Assigned at Not on file Legal Sex Female 9:11 PM ICE GUARD SKATING RINK Gender Identity Not on file Sexual Orientation Straight 01/24/2020 10 :25 AM CDT Obstetrics History Para Term AB IAB SAB Ectopic Multiple Livin g Live Births 3 1 1 1 1 1 1 Date Outcome GA Total Labor Labor/2nd/3rd Weight Sex Type Anes PTL [place] A1 A5 Name Clin 06/30 19 SAB 06/03 Term 41w 1d M CS-Un spec Living [place] Last Filed Vital Signs Vital Sign Reading Time Taken Comments Blood Pressure 105/68 06/21/2022 9:15 AM CDT Pulse 61 06/21/2022 9:15 AM CDT Temperature 36.3 C (97.3 F) 06/21/2022 8:40 AM CDT Respiratory Rate 23 06/21/2022 9:15 AM CDT Oxygen Saturation 100% 06/21/2022 9:15 AM CDT Inhaled Oxygen Concentration - - Weight 81.6 kg (180 lb) 06/21/2022 6:57 AM CDT Height 170.2 cm (5' 7) 06/21/2022 6:57 AM CDT Body Mass Index 28.19 06/21/2022 6:57 AM CDT Plan of Treatment Health Maintenance Due Date Last Done Comments Varicella Vaccines (1 of 2 - 13+ 2-dose series) 11/30/2004 Hepatitis B Screening 11/30/2009 Regular Well Visit/Exam 18-64 11/30/2009 Depression Screening 01/26/2023 01/26/2022 Cervical Cancer Screening 03/02/20232021, 07/13/2020 Influenza Vaccine (Season Ended) 2025 DTaP/Tdap/Td Vaccine (2 - Td or Tdap) 07/02/2029 07/02/2019 Hepatitis C Screening Completed 10/23/2019 HPV Vaccines Aged Out No longer eligi ble based on patient's age to complete this topic Pneumococcal vaccine <65 Aged Out No longer eligible based on patient's age to complete this topic Procedures Procedure Name Priority Date/Time Associated Diagnosis Comments PAP AND HIGH RISK HPV, REFLEX TO GENOTYPING Routine 03/02/2022 9:21 AM CDT Encounter for routine follow-up Well woman exam HEPATITIS C ANTIBODY Routine 10/23/2019 12:00 PM ICE GUARD SKATING RINK Secondary amenorrhea from Last 3 Months or Most Recently Relevant to Health Maintenance Results * Pap and High Risk HPV, reflex to Genotyping (03/02/2022 9:21 AM CDT) Thin prep (Pap test) 03/02/2022 9:21 AM CDT 03/04/2022 11:40 AM CDT Narrative PATHOLOGY [facility] - 03/09/2022 4:13 PM CDT EPIC results best viewed via link to PDF [address] [address] Tele: Maral Hamm MD - Leadership Program Associate CYTOLOGY REPORT Note to Patients: This report may contain a detailed description of human tissue sent by a health care provider to the laboratory for pathologic evaluation. The content of this report is essential for diagnosis and may provide important critical findings. This information may be unfamiliar to patients to review without a medical professional present. It is advised that the patient review this report in the presence of a health care provider who can answer questions and explain the details. Patient Name: ADELITA COSTA Address: [address] [place] [address], [place] [address] Gender: F : 1990 (Age: 31) Service: Location: [facility] #: [id number] Patient Type: [facility] SPECIMEN Taken: 03/02/2022 Reported: 03/09/2022 Physician(s): Dr. Endy Ferrara M.D. FINAL DIAGNOSIS: Specimen Type: - ThinPrep Pap and HPV w/ reflex Genotyping Statement of Specimen Adequacy: Source: Cervical/Endocervical - Satisfactory for interpretation - Endocervical/Transformation zone component absent or insufficient - Case screened using computer assisted imaging technology and manually re- screened by a mineralogy teacher. General Categorization: - Negative for intraepithelial lesion or malignancy Interpretation: - Specimen sent for reflex HPV testing. cad/03/09/2022 16:13GALLITO Silva (ASCP) Varsha Garay M.S., GALLITO (ASCP)Report Reviewed and Electronically Signed By Varsha Garay M.S., GALLITO (ASCP)Clerical Data Follow A; [id number] ADDENDA: Addendum Comment Ancillary Testing: HPV Genotype 16 - Not Detected Reference Range: Not Detected HPV Genotype 18 - Not Detected Reference Range: Not Detected This test was performed using the CHARMAINE 4800 GALLITO Howard (ASCP) Date Ordered: 03/08/2022 Status: Signed Out Date Complete: 03/15/2022 By: GALLITO Howard (ASCP) Date Reported: 03/15/2022 DIAGNOSIS COMMENT: Ancillary Testing: HPV High Risk Group (16, 18, 31, 33, 35, 39, 45, 51, 52, 56, 58, 59, 66 and 68) - Detected Reference Range: Not Detected This test was performed using the CHARMAINE 4800 CLINICAL DIAGNOSIS AND HISTORY Last Menstrual Period: RECENT This specimen has been rescreened in accordance with the [facility] Laboratory Quality Management Program. REPORT IMAGES AND/OR SCANNED DOCUMENTS ONLY VIEWABLE IN PDF FORMAT The Pap test is a screening test used to aid in the detection of cervical cancer and its precursors. It should not be the sole means by which malignant and premalignant lesions are diagnosed. Both false negative and false positive results may occur. It also has poor sensitivity for the detection of endometrial lesions and should not be used to evaluate suspected endometrial abnormalities. For these reasons it is most important to obtain Pap tests at regular intervals, as recommended by your physician or nurse practitioner. Endy Ferrara MD LAB CYTOLOGY ORDERABLES Fin al Result PATHOLOGY [facility] Laboratory Receiving [address] [place] [address] * Hepatitis C antibody (10/23/2019 12:00 PM ICE GUARD SKATING RINK) Hep C Ab Non-Reactiv e Non-[facility]activ e [facility] Blood specimen (specimen) 10/23/2019 12:00 PM ICE GUARD SKATING RINK 10/23/2019 8:57 PM ICE GUARD SKATING RINK Endy Ferrara MD LAB MICROBIOLOGY - GENERAL ORDERABLES Final Result Performing Organization Address City/[facility]/ZIP Co de Phone Number [facility] [address] Department [place] [address] from Last 3 Months or Most Recently Relevant to Health Maintenance Insurance [facility] Care Teams Mainspring Strip Gauger Relationship Specialty Start Date End Date No, Physician PCP - General 05/03/22 Endy Ferrara MD [address] [facility] [address] [place] [address] Referring Physician Obstetrics and Gynecology 12/08/20
--- OUTSIDE RECORDS SUMMARY | 2025-02-13 12:36 | XMS_ITS | Continuity of Care Document ---
Author Organization [facility] Address [address] [place] [address] [place] [address] Phone Care Team Providers Care Manager Medical Device Name Role Phone Zuhair Tapia MD Unavailable Unavailable Allergies, Adverse Reactions, Alerts Substance Reaction Status Criticality No Known Allergies Active No Inform ation Procedures Procedure Date PREV VISIT, NEW, AGE 18-39 Advance Directives Directive Yes / No Effective Date File Name No Information Encounters Encounter Description Practice Location Reason(s) For Visit Diagnoses Date Provider Providers Copied on Encounter PREV VISIT, NEW, AGE 18-39 [facility], [address], [place], [id number], [place] tel:[phone] [facility] physical (chief complaint) Encntr for general adult medical exam w/o abnormal findings Willie Moffett. [address], [address], [place], [id number], [place]. tel:[phone] Referring Provider: Zuhair Tapia, [address], [place], [id number]. tel:[phone] Family History Family Member Type Diagnosis Age At Onset Father Problem (finding) unknown Mother Problem (finding) Alive and well Payers Payer name Insurance type Covered green party ID Authoriza tion(s) No Information Social History Type Description Quantity Date Captured Comments Alcohol Use Details No Caffeine Use Details Unknown Tobacco Use Status Current non-smoker 19 Smoking Status Never smoker Non-Smoking Tobacco Use Details : No Details Available : No Details Available Sex Female Vital Signs Date / Time: Height Weight BMI Pulse Rate Blood Pressure Temperature Respiratory Rate Body Surface Area Head Circumference BMI percentile Pulse Ox Inhaled Ox 6:01 PM 67.00 in 146.00 lbs 22.8 7 kg/m eter (2) 87 /min 104/65 mm[Hg] 97.8 F 16 /min Chief Complaint And Reason For Visit From encounter dated '05/20/2019 16:30'. physical (chief complaint). Description: Pt needs annual physical. Pt LMP was 4 weeks ago. Pt foundout she is . Pt had multiple positive urine test at home Pt is approximately 4 weeks . Pt had very small amount of brownish blood vaginally this morning and she is very concerned about miscarriage Pt denies any pelvic pain Pt denies any persistent vaginal bleeding. Pt wentto see her OB this afternoon and she just got a blood drawn for HCG and she did not get to talk to the doctor and she is very upset and concerned Pt denies any other complaints Plan Of Treatment Date Type Action Status No Information History Of Present Illness Encounter Date Complaint History Of Prese nt Illness physical Pt needs annual physical. Pt LMP was 4 weeks ago. Pt found out she is . Pt had multiple positive urine test at home Pt is approximately 4 weeks . Pt had very small amount of brownish blood vaginally this morning and she is very concerned about miscarriage Pt denies any pelvic pain Pt denies any persistent vaginal bleeding. Pt went to see her OB this afternoon and she just got a blood drawn for HCG and she did not get to talk to the doctor and she is very upset and concerned Pt denies any other complaints Instructions Date Instruction Additional Infor mation No Information Assessments Type Assessment Date assessment Encntr for general adult medical exam w/o abnormal findings Mental Status Date Cognitive Assessment Orientation - [place] ed to time, place, person, situation.
--- OUTSIDE RECORDS SUMMARY | 2025-02-13 12:36 | XMS_ITS | Clinical Summary ---
Author Organization [facility] [employer] Address [address] [place] [address] Care Team Providers Care Inspector Finishing Name Role Phone Zuhair Tapia MD Primary Care Provider [phone] Source Comments [facility],non-owned Affiliates and Associated Physician Practices is amultiple site organization consisting of ambulatory clinics and hospital sitesin [place], [place], [place] and [place]. This disclosure is being madepursuant to the Care Everywhere program and may not contain all information available regarding this patient. Last updated 18.[facility] Allergies No known active allergies Medications * Be aware that medications may not be up to date on this document. Alwaysverify current medications with the patient. Cetirizine HCl (ZYRTEC ALLERGY PO) Active Immunizations Immunization Administration Dates Next Due TDAP (7yrs+) 07/02/2019 Family History Relation Name Status Comments Father Alive Mother Alive Social History Tobacco Use Types Packs/Day Years Used Date Smoking Tobacco: Never Smokeless Tobacco: Never Comments No Sex and Gender Information Value Date Recorded Sex Assigned at Not on file Legal Sex Female 7:40 AM CARE SPECIALIST Gender Identity Not on file Sexual Orientation Not on file Last Filed Vital Signs Vital Sign Reading Time Taken Comments Blood Pressure 104/60 01/08/2018 10:14 AM CDT Pulse 94 01/08/2018 10:14 AM CDT Temperature 36.9 C (98.4 F) 01/08/2018 10:14 AM CDT Respiratory Rate 16 01/08/2018 10:14 AM CDT Oxygen Saturation 98% 01/08/2018 10:14 AM CDT Inhaled Oxygen Concentration - - Weight 65.8 kg (145 lb) 01/08/2018 10:14 AM CDT Height 171.5 cm (5' 7.5) 01/08/2018 10:14 AM CD T Body Mass Index 22.38 01/08/2018 10:14 AM CDT Plan of Treatment Health Maintenance Due Date Last Done Comments HIV SCREENING 11/30/2006 HEPATITIS C SCREENING 11/26/2009 HEPATITIS B VACCINE (1 of 3 - 19+ 3-dose series) 11/30/2010 COVID-19 VACCINE (2023-2 5 season) 2024 DEPRESSION SCREENING 09/11/2024 INFLUENZA VACCINE (Season Ended) 2025 DTAP/TDAP/TD VACCINES (2 - T d or Tdap) 07/02/2029 07/02/2019 ZOSTER VACCINE (1 of 2) 11/30/2041 HIB VACCINE Aged Out No longer eligi ble based on patient's age to complete this topic HPV VACCINE Aged Out No longer eligi ble based on patient's age to complete this topic MENINGOCOCCAL (Group B) VACC INE SHARED DECISION-MAKING Aged Out No longer eligibl e based on patient's age to complete this topic MENINGOCOCCAL GROUPS A/C/Y/W VACCINE Aged Out No longer eligible b ased on patient's age to complete this topic PNEUMOCOCCAL VACCINE Aged Out No long er eligible based on patient's age to complete this topic Insurance [facility] AETNA Care Teams Inspector Finishing Relationship Specialty Start Date End Date Zuhair Tapia MD PCP - General 06/26/19
--- OUTSIDE RECORDS SUMMARY | 2025-02-13 12:36 | XMS_ITS | Referral Summary ---
Author Organization [address] Address [address] [place] [address] Care Team Providers Care Bottle And Glass Inspector Name Role Phone Endy Ferrara MD Unavailable [phone] No, Physician Primary Care Provider [phone] Allergies No known active allergies Medications vits15/iron/foli [...] (05/19/2022): Added automatically from request for surgery [id number] Lactating mother 12/08/2020 Breast skin changes 12/08/2020 Axillary mass, bilateral 06/11/2020 Resolved Problems Problem Noted Date Diagnosed Date Resolved Date Encounter for supervision of normal , antepartum 12/27/2021 03/10/2022 Overview (12/27/2021): First Trimester: [] Initial Labs: Lab Results Component Value Date ABORH O Positive 10/23/2019 IDCOOMB Negative 10/11/2021 [id number] Nonreactive 10/23/2019 LABRPR Nonreactive 10/23/2019 RUBELIGG Reactive 10/23/2019 Lab Results Component Value Date HEPBSAG Nonreactive 10/23/2019 HEPCAB Non-Reactive 10/23/2019 RESSUMCFM NEGATIVE 10/23/2019 Lab Results Component Value Date WBC 9.8 10/11/2021 HGB 11.9 10/11/2021 HCT 37.4 10/11/2021 MCV 94.7 10/11/2021 LABPLAT 304 10/11/2021 Carrier Screening: Aneuploidy screeninnd Trimester: [] Anatomy ultrasound: [] Third trimester Labs: Lab Results Component Value Date [id number] 142 (H) 10/11/2021 Lab Results Component Value Date HGB 11.9 10/11/2021 LABPLAT 304 10/11/2021 Lab Results Component Value Date [id number] Nonreactive 10/23/2019 LABRPR Nonreactive 10/23/2019 [] Tdap (27-36wks) [] Rhogam (if Rh neg): [] GBS: Lab Results Component Value Date MICROBIOLOGY 04/28/2020 Final Report: No Beta-streptococcus Group B isolated Immunizations Immunization Administration Dates Next Due Tdap 07/02/2019 Social History Tobacco Use Types Packs/Day Years [...] and Family Not on file 10/23/2019 Attends Church Services Not on file 10/23 Active Member [...] of Binge Drinking Not on file 06/11 [place] Depression Scale Answer Date Recorded [place] Depression Scale Total 0 01/26/2022 The thought of harming myself has occurred to me . Never 01/26/2022 Comments No Sex and Gender Information Value Date Recorded Sex Assigned at Not on file Legal Sex Female 9:11 PM SUPERVISOR WATERWORKS Gender Identity Not on file Sexual Orientation Straight 01/24/2020 10 :25 AM CDT Last Filed Vital Signs Vital Sign Reading [...] 06/21/2022 6:57 AM CDT Plan of Treatment Not on file Procedures Procedure Name Priority Date/Time Associated Diagnosis Comments PAP AND HIGH RISK HPV, REFLEX TO GENOTYPING Routine 03/02/2022 9:21 AM CDT Encounter for routine follow-up Well woman exam HEPATITIS C ANTIBODY Routine 10/23/2019 12:00 PM SUPERVISOR WATERWORKS Secondary amenorrhea from Last 3 Months or Most Recently Relevant to Health Maintenance Results * Pap and High Risk HPV, reflex to Genotyping (03/02/2022 9:21 AM CDT) Thin prep (Pap test) 03/02/2022 9:21 AM CDT 03/04/2022 11:40 AM CDT Narrative PATHOLOGY [facility] - 03/09/2022 4:13 PM CDT EPIC results best viewed via link to PDF [address] [address] Tele: Maral Hamm MD - Supervisor Stave Finishing CYTOLOGY REPORT Note to Patients: This report [...] the details. Patient Name: ADELITA COSTA Address: [address] [place] [address], [place] [address] Gender: F : 1990 (Age: 31) Service: Location: N : [id number] Hospital #: [id number] Patient Type: [facility] SPECIMEN Taken: 03/02/2022 Reported: 03/09/2022 Physician(s): Dr. Endy Ferrara M.D. FINAL DIAGNOSIS: Specimen Type: - ThinPrep Pap and HPV w/ reflex Genotyping Statement of Specimen Adequacy: Source: Cervical/Endocervical - Satisfactory for interpretation - Endocervical/Transformation zone component absent or insufficient - Case screened using computer assisted imaging technology and manually re- screened by a shrimp cleaner. General Categorization: - Negative for intraepithelial lesion or malignancy Interpretation: - Specimen sent for reflex HPV testing. cad/03/09/2022 16:13GALLITO Silva (ASCP) Varsha Garay M.S., [place]O (ASCP)Report Reviewed and Electronically Signed By Varsha Garay M.S., [place] (ASCP)Clerical Data Follow A; [id number] ADDENDA: Addendum [...] has been rescreened in accordance with the [facility] Laboratory Quality Management Program. REPORT IMAGES AND/OR [...] recommended by your physician or nurse practitioner. us Endy Ferrara MD LAB CYTOLOGY ORDERABLES Fin al Result PATHOLOGY [facility] Laboratory Receiving [address] [place] [address] * Hepatitis C antibody (10/23/2019 12:00 PM SUPERVISOR WATERWORKS) Hep C Ab Non-Reactiv e Non-Reactiv e [facility] Blood specimen (specimen) 10/23/2019 12:00 PM SUPERVISOR WATERWORKS 10/23/2019 8:57 PM SUPERVISOR WATERWORKS Endy Ferrara MD LAB MICROBIOLOGY - GENERAL ORDERABLES Final Result Performing Organization Address [facility] Co de Phone Number [facility] [address] Department [place] [address] from Last 3 Months or Most Recently Relevant to Health Maintenance [facility] HMO [facility] HMO Care Teams Bottle And Glass Inspector Relationship Specialty Start Date End Date No, Physician PCP - General 05/03/22 Endy Ferrara MD [address] [facility] [address] [place] [address] Referring Physician Obstetrics and Gynecology 12/08/20
== END 2025-02-13 11:26 | disposition home or self-care (01) ==
LOC: ANHSURGERY 11:30
PROVIDERS: PCP Internal Medicine; Visit Provider Student in an Organized Health Care Education/Training Program
DX: N93.9 Abnormal uterine and vaginal bleeding, unspecified (principal)
CPT/HCPCS: 36415; 85014; 85018

== ENCOUNTER 2025-02-18 01:04 | Day surgery (SDC) | payer OTHER, SELFPAY ==
[2025-02-11 15:12] VITALS: BMI 27.1
--- NOTE | 2025-02-11 15:13 | PC.NURSE ---
Report to the Outpatient Waiting Room, entrance under the green pavilion located off [facility], at time _1115_ on date _[id number]_. Planned Procedure Time: _115pm_.? Time changes happen often and if your time is changed the preop area will call you the afternoon before. - You and your visitor will be asked to self-screen and do not enter if you have any COVID symptoms. Please call surgeon if you need to reschedule. - A mask is optional within the hospital at this time. Patients may have clear liquids (water, carbonated beverages, clear teas, apple juice) until 3 hours prior to surgery with a maximum of 20 ounces. - No food from midnight until time of surgery and no smoking, or chewing tobacco (or any form of nicotine). No chewing gum, candy or mints. Take only the following medications with a SIP of water on the morning of surgery: ___Duloxetine____ DO NOT STOP ANY OF YOUR OTHER PRESCRIPTION MEDICATIONS PRIOR TO SURGERY EXCEPT THE FOLLOWING Hold all vitamins and supplements for 3 days per anesthesiologist. Medications to discontinue per physician Date to take last dose Please no make-up, nail barbadian, hairspray, perfume, deodorant, or body powder the day of surgery.? No jewelry (including any body piercings) or valuables the day of surgery, leave them at home.? Please take a shower or bath the night before, or the morning of, surgery with an antibacterial soap.? Wear comfortable, loose fitting clothing.? - Jewelry must be removed prior to entering the operating room.? Rings and piercings that are not removed may be cut off. - The hospital will not accept responsibility for valuables.? - Please leave all valuables, including medications, at home the day of surgery. If you are going home after surgery, a licensed catering driver must drive you home.? - NO public transportation without another adult if you receive anesthesia. - We recommend that an adult stay with you for 24 hours following discharge. - We also recommend that you do not drive, make important decision, drink alcoholic beverages, or take any drugs that were not prescribed by your health care provider for at least 24 hours after your discharge time. Follow any additional instructions given to you from your surgeon. Telephone instructions given to __Adelita___and asked if any additional questions and then verbalized understanding. Patient advised to call surgeon office or pre surgery nurse liaison [phone] if any additional questions.
--- NOTE | 2025-02-17 13:11 | P.HP_ITS ---
H&P: HPI History of Present Illness Date/Time: 02/17/25 13:11 Chief Complaint: abnormal uterine bleeding Narrative: 34-year-old female who presents for hysteroscopy D&C with endometrial ablation for abnormal uterine bleeding. Patient states she has heavy painful menses. Patient states her menses will cause extreme nausea and fatigue. Patient would like to avoid hormonal contraceptives. Her partner's had a vasectomy for contraception. She is interested in endometrial ablation. Review of Systems Cardiovascular: Cardiovascular: Denies chest pain, Denies leg edema, Denies palpitations, Denies dyspnea and Denies dyspnea on exertion Respiratory: Respiratory: Denies cough, Denies dyspnea and Denies dyspnea on exertion Gastrointestinal: Gastrointestinal: Denies abdominal pain, Denies constipa tion, Denies diarrhea, Denies nausea and Denies vomiting Genitourinary: Genitourinary: Denies hematuria, Denies urinary frequency, Denies dysuria, Denies pelvic pain, Denies urinary incontinence and Denies vaginal discharge Neurologic: Reports system reviewed and no additional complaints, except as documented Psychiatric: Psychiatric: Reports no additional psychiatric complaints Endocrine: Endocrine: Denies palpitations PMFSH Past Medical History Medical History Upper back pain, chronic Cervicalgia Axillary abscess deliv due to previous difficult deliv, deliv, curr hospitaliz Surgical History Surgical History History of hysteroscopy D & C H/O gynecological procedure IUD insertion/removal History of tonsillectomy History of section x 2 Social History Social History Smoking status: Never smoker Second hand tobacco smoke exposure: No Alcohol intake: current Alcohol use details: a glass of wine here and there Substance use: never Lack of Transportation: No Lack of Food: Never True Current Housing: I Have Housing Concerned About Future Housing: No Difficulty Paying Gas/Electric Bills: No Difficulty Paying for Meds: No Currently Unemployed: No Education: Bachelor's Degree Difficulty w/ Childcare or Family Care: No Living arrangements: with family Gender identity (if verbalized by the patient): Female Spiritual care concerns: No Meds Home Medications and Allergies Home Medications ?Medication ?Instructions ?Recorded ?Confirmed ?Type duloxetine 60 mg capsule,delayed 60 mg PO DAILY #90 caps 02/04/25 02/11/25 Rx release Allergies Allergy/AdvReac Type Severity Reaction Status Date / Time No Known Allergies Allergy Verified 02/11/25 15:06 Exam Const: General: no acute distress Eyes: EOM: EOMs intact bilaterally Neck: Neck: supple Thyroid: thyroid normal Chest: Breast/axilla inspection: normal inspection of the breasts Breast/axilla palpation: normal palpation of the breasts, normal palpation of the axillae and no axillary lymphadenopathy Resp: Effort & Inspection: normal respiratory effort Auscultation: clear to auscultation bilaterally Cardio: Rate: regular rate Rhythm: regular rhythm GI: Inspection: non-distended GI Palp: Yes Soft to palpation, No Tenderness to palpation present (GI) and No Guarding due to palpation present (GI) Auscultation: normal bowel sounds : General: No bladder normal to palpation External Female Exam: normal external appearance Speculum Exam - Vagina: normal vaginal discharge and No vaginal bleeding Speculum Exam - Cervix: nontender Bimanual exam- vagina & uterus: No bladder normal to palpation and No Cervical tenderness present OB/external & speculum: No vaginal bleeding Skin: General skin exam: normal color and no rashes or lesions noted Neuro: Cognition (Neuro): normal cognition Speech: normal speech Extrem: General: normal to inspection and no edema Psych: Mental Status: mental status grossly normal Affect: normal affect Assessment and Plan Assessment and plan (1) Abnormal uterine bleeding (AUB): Code(s): N93.9 - Abnormal uterine and vaginal bleeding, unspecified Status: Acute Assessment and Plan: 34-year-old female who presents with complaint of heavy painful menses Patient has dealt with heavy menses for some time has had vasectomy Patient is not interested in hormonal contraceptives Discussed management options including OCPs, endometrial ablation, hysterectomy Risks and benefits of each reviewed Patient would like to proceed with endometrial ablation Will proceed with hysteroscopy D&C with ablation
--- OUTSIDE RECORDS SUMMARY | 2025-02-18 01:07 | XMS_ITS | Referral Summary ---
Author Organization [address] Address [address] [place] [address] Care Team Providers Care Registered Route Associate Name Role Phone Endy Ferrara MD Unavailable [phone] No, Physician Primary Care Provider [phone] Allergies No known active allergies Medications vits15/iron/foli [...] (05/19/2022): Added automatically from request for surgery [id number] Lactating mother 12/08/2020 Breast skin changes 12/08/2020 Axillary mass, bilateral 06/11/2020 Resolved Problems Problem Noted Date Diagnosed Date Resolved Date Encounter for supervision of normal , antepartum 12/27/2021 03/10/2022 Overview (12/27/2021): First Trimester: [] Initial Labs: Lab Results Component Value Date ABORH O Positive 10/23/2019 IDCOOMB Negative 10/11/2021 [id number] Nonreactive 10/23/2019 LABRPR Nonreactive 10/23/2019 RUBELIGG Reactive 10/23/2019 Lab Results Component Value Date HEPBSAG Nonreactive 10/23/2019 HEPCAB Non-Reactive 10/23/2019 RESSUMCFM NEGATIVE 10/23/2019 Lab Results Component Value Date WBC 9.8 10/11/2021 HGB 11.9 10/11/2021 HCT 37.4 10/11/2021 MCV 94.7 10/11/2021 LABPLAT 304 10/11/2021 Carrier Screening: Aneuploidy screeninnd Trimester: [] Anatomy ultrasound: [] Third trimester Labs: Lab Results Component Value Date [id number] 142 (H) 10/11/2021 Lab Results Component Value Date HGB 11.9 10/11/2021 LABPLAT 304 10/11/2021 Lab Results Component Value Date [id number] Nonreactive 10/23/2019 LABRPR Nonreactive 10/23/2019 [] Tdap [...] and Family Not on file 10/23/2019 Attends [facility] Not on file 10/23 Active Member [...] of Binge Drinking Not on file 06/11 [place] Depression Scale Answer Date Recorded [place] Depression Scale Total 0 01/26/2022 The thought of harming myself has occurred to me . Never 01/26/2022 Comments No Sex and Gender Information Value Date Recorded Sex Assigned at Not on file Legal Sex Female 9:11 PM CATALYST OPERATOR GASOLINE Gender Identity Not on file Sexual Orientation [...] HEPATITIS C ANTIBODY Routine 10/23/2019 12:00 PM CATALYST OPERATOR GASOLINE Secondary amenorrhea from Last 3 Months or Most Recently Relevant to Health Maintenance Results * Pap and High Risk HPV, reflex to Genotyping (03/02/2022 9:21 AM CDT) Thin prep (Pap test) 03/02/2022 9:21 AM CDT 03/04/2022 11:40 AM CDT Narrative PATHOLOGY [facility] - 03/09/2022 4:13 PM CDT EPIC results best viewed via link to PDF [address] [address] Tele: Maral Hamm MD - Founding Partner CYTOLOGY REPORT Note to Patients: This report [...] the details. Patient Name: ADELITA COSTA Address: [address] [place] [address], [place] [address] Gender: F : 1990 (Age: 31) Service: Location: N : [id number] Hospital #: [id number] Patient Type: [facility] [place] Taken: 03/02/2022 Reported: 03/09/2022 Physician(s): Dr. Endy Ferrara M.D. FINAL DIAGNOSIS: Specimen Type: - ThinPrep Pap and HPV w/ reflex Genotyping Statement of Specimen Adequacy: Source: Cervical/Endocervical - Satisfactory for interpretation - Endocervical/Transformation zone component absent or insufficient - Case screened using computer assisted imaging technology and manually re- screened by a organ pipe maker metal. General Categorization: - Negative for intraepithelial lesion [...] has been rescreened in accordance with the [facility] Laboratory Quality Management Program. REPORT IMAGES AND/OR [...] LAB CYTOLOGY ORDERABLES Fin al Result PATHOLOGY [facility] Laboratory Receiving [address] [place] [address] * Hepatitis C antibody (10/23/2019 12:00 PM CATALYST OPERATOR GASOLINE) Hep C Ab Non-Reactiv e Non-Reactiv e [facility] Blood specimen (specimen) 10/23/2019 12:00 PM CATALYST OPERATOR GASOLINE 10/23/2019 8:57 PM CATALYST OPERATOR GASOLINE Endy Ferrara MD LAB MICROBIOLOGY - GENERAL ORDERABLES Final Result Performing Organization Address [facility] Co de Phone Number [facility] [address] Department [place] [address] from Last 3 Months or Most Recently Relevant to Health Maintenance [facility] H[facility] Care Teams Registered Route Associate Relationship Specialty Start Date End Date No, Physician PCP - General 05/03/22 Endy Ferrara MD [address] [facility] [address] [place] [address] Referring Physician Obstetrics and Gynecology 12/08/20
--- OUTSIDE RECORDS SUMMARY | 2025-02-18 01:07 | XMS_ITS | Encounter Summary ---
Author Organization [employer] Address [address] [place] [address] Care Team Providers Care Toilet And Laundry Soap Supervisor Name Role Phone Zuhair Tapia MD Primary Care Provider [phone] Encounter Details Date Type Department Care Team (Late st Contact Info) Description 08/08/2003 Outpatient Historical [facility] Alysha Everett MD [address] [place] [address] Er, Authorized P NO ADDRESS ON FILE FX MEDIAL MALLEOLUS-CLOSE (Primary Dx) Social History Tobacco Use Types Packs/Day Years Used Date Smoking Tobacco: Never Assessed Comments Unknown Sex and Gender Information Value Date Recorded Sex Assigned at Not on file Legal Sex Female 3:26 AM DISTRICT TRAFFIC CHIEF Gender Identity Not on file Sexual Orientation Not on file documented as of this encounter Plan of Treatment Not on file documented as of this encounter Visit Diagnoses Diagnosis Closed fracture of medial malleolus- Primary documented in this encounter Care Teams Toilet And Laundry Soap Supervisor Relationship Specialty Start Date End Date Zuhair Tapia MD [address] [place] [address] PCP - General Family Practice 12/27/19 documented as of this encounter
--- OUTSIDE RECORDS SUMMARY | 2025-02-18 01:07 | XMS_ITS | Clinical Summary ---
Author Organization [facility] [employer] Address [address] [place] [address] Care Team Providers Care Plumbing Service Technician Name Role Phone Zuhair Tapia MD Primary Care Provider [phone] Source Comments [facility] [employer],non-owned Affiliates and Associated Physician Practices is amultiple site organization consisting of ambulatory clinics and hospital sitesin [place], [place], [place] and [place]. This disclosure is being madepursuant to the Care Everywhere program and may not contain all information available regarding this patient. Last updated 18.[facility] [employer] Allergies No known active allergies Medications * [...] on file Legal Sex Female 7:40 AM OLDER WORKER SPECIALIST Gender Identity Not on file Sexual [...] patient's age to complete this topic Insurance [facility] [employer] Care Teams Plumbing Service Technician Relationship Specialty Start Date End Date Zuhair Tapia MD PCP - General 06/26/19
--- OUTSIDE RECORDS SUMMARY | 2025-02-18 01:07 | XMS_ITS | Continuity of Care Document ---
Author Organization [facility] Address [address] [place] [address] [place] [address] Phone Care Team Providers Care Holistic Specialist Name Role Phone Zuhair Tapia MD Unavailable Unavailable Allergies, Adverse Reactions, Alerts Substance Reaction Status Criticality No Known Allergies Active No Inform ation Procedures Procedure Date PREV VISIT, NEW, AGE 18-39 Advance Directives Directive Yes / No Effective Date File Name No Information Encounters Encounter Description Practice Location Reason(s) For Visit Diagnoses Date Provider Providers Copied on Encounter PREV VISIT, NEW, AGE 18-39 [facility], [address] [place], [id number], [place] tel:[phone] [facility] physical (chief complaint) Encntr for general adult medical exam w/o abnormal findings Willie Moffett. [address], [address] [place], [place], [id number], [place]. tel:[phone] Referring Provider: Zuhair Tapia, [address] [place], [place], [id number]. tel:[phone] Family History Family Member Type Diagnosis Age At Onset Father Problem (finding) unknown Mother Problem (finding) Alive and well Payers Payer name Insurance type Covered democrat ID Authoriza tion(s) No Information Social History [...] Mental Status Date Cognitive Assessment Orientation - [place] ed to time, place, person, situation.
--- OUTSIDE RECORDS SUMMARY | 2025-02-18 01:07 | XMS_ITS | Clinical Summary ---
Author Organization [facility] Address [address] [place] [address] Phone Care Team Providers Care Fiberglass Insulation Installer Name Role Phone Zuhair Tapia MD Primary Care Provider Allergies No known active allergies Medications vit-iron [...] CDT 2 Active naloxone (NARCAN) 4 mg/spray [place], Non-Aerosol Administer 1 spray into affected nostril(s) [...] declined 06/02/2020 How often do you attend judaism or scientologist serv ices? Patient declined 06/02/2020 Do you belong to any clubs o r organizations such as judaism groups, unions, fraternal or athletic groups, or [...] on file Legal Sex Female 3:26 AM HAT STEAMER Gender Identity Not on file Sexual Orientation [...] Advance Directives For more information, please contact: [phone] * Full Code (Latest Code Status on File) Date Activated Date Inactivated Comments 01/18/2022 12:40 PM 01/20/2022 2:50 PM * Full Code Date Activated Date Inactivated Comments 01/12/2022 12:01 PM 01/12/2022 4:28 PM * Full Code Date Activated Date Inactivated Comments 06/03/2020 11:54 PM 06/06/2020 2:59 PM * Full Code Date Activated Date Inactivated Comments 06/02/2020 9:11 AM 06/03/2020 11:54 PM Care Teams Fiberglass Insulation Installer Relationship Specialty Start Date End Date Zuhair Tapia MD [address] [place], [place] [address] [place] [address] PCP - General Family Practice 12/27/19
--- OUTSIDE RECORDS SUMMARY | 2025-02-18 01:07 | XMS_ITS | Encounter Summary ---
Author Organization [employer] Address [address] [place] [address] Care Team Providers Care Hogshead Hooper Name Role Phone Zuhair Tapia MD Primary Care Provider [phone] Encounter Details Date Type Department Care Team (Late st Contact Info) Description 08/13/2003 Outpatient Historical [facility] Gen[facility], Karina Harrison MD NO ADDRESS ON FILE FX MEDIAL MALLEOLUS-CLOSE (Primary Dx) Social History Tobacco Use Types Packs/Day Years Used Date Smoking Tobacco: Never Assessed Comments Unknown Sex and Gender Information Value Date Recorded Sex Assigned at Not on file Legal Sex Female 3:26 AM BUCKLER AND LACER Gender Identity Not on file Sexual Orientation Not on file documented as of this encounter Plan of Treatment Not on file documented as of this encounter Visit Diagnoses Diagnosis Closed fracture of medial malleolus- Primary documented in this encounter Care Teams Hogshead Hooper Relationship Specialty Start Date End Date Zuhair Tapia MD [address] [place] [address] PCP - General Family Practice 12/27/19 documented as of this encounter
--- OUTSIDE RECORDS SUMMARY | 2025-02-18 01:07 | XMS_ITS | Clinical Summary ---
Author Organization [address] Address [address] [place] [address] Care Team Providers Care Otr Refrigerated Cdl Truck Driver Name Role Phone Endy Ferrara MD Unavailable [phone] No, Physician Primary Care Provider [phone] Allergies No known active allergies Medications vits15/iron/foli [...] (05/19/2022): Added automatically from request for surgery [id number] Lactating mother 12/08/2020 Breast skin changes 12/08/2020 Axillary mass, bilateral 06/11/2020 Resolved Problems Problem Noted Date Diagnosed Date Resolved Date Encounter for supervision of normal , antepartum 12/27/2021 03/10/2022 Overview (12/27/2021): First Trimester: [] Initial Labs: Lab Results Component Value Date ABORH O Positive 10/23/2019 IDCOOMB Negative 10/11/2021 [id number] Nonreactive 10/23/2019 LABRPR Nonreactive 10/23/2019 RUBELIGG Reactive 10/23/2019 Lab Results Component Value Date HEPBSAG Nonreactive 10/23/2019 HEPCAB Non-Reactive 10/23/2019 RESSUMCFM NEGATIVE 10/23/2019 Lab Results Component Value Date WBC 9.8 10/11/2021 HGB 11.9 10/11/2021 HCT 37.4 10/11/2021 MCV 94.7 10/11/2021 LABPLAT 304 10/11/2021 Carrier Screening: Aneuploidy screeninnd Trimester: [] Anatomy ultrasound: [] Third trimester Labs: Lab Results Component Value Date [id number] 142 (H) 10/11/2021 Lab Results Component Value Date HGB 11.9 10/11/2021 LABPLAT 304 10/11/2021 Lab Results Component Value Date [id number] Nonreactive 10/23/2019 LABRPR Nonreactive 10/23/2019 [] Tdap [...] and Family Not on file 10/23/2019 Attends [employer] Not on file 10/23 Active Member [...] of Binge Drinking Not on file 06/11 [place] Depression Scale Answer Date Recorded [place] Depression Scale Total 0 01/26/2022 The thought of harming myself has occurred to me . Never 01/26/2022 Comments No Sex and Gender Information Value Date Recorded Sex Assigned at Not on file Legal Sex Female 9:11 PM BRICK PITCHER Gender Identity Not on file Sexual Orientation Straight 01/24/2020 10 :25 AM CDT Obstetrics History Para Term AB IAB SAB Ectopic Multiple Livin g Live Births 3 1 1 1 1 1 1 Date Outcome GA Total Labor Labor/2nd/3rd Weight Sex Type Anes PTL [place] A1 A5 Name Clin 06/30 19 SAB 06/03 Term 41w 1d M CS-Un spec Living [place] Last Filed Vital Signs Vital Sign Reading [...] HEPATITIS C ANTIBODY Routine 10/23/2019 12:00 PM BRICK PITCHER Secondary amenorrhea from Last 3 Months or Most Recently Relevant to Health Maintenance Results * Pap and High Risk HPV, reflex to Genotyping (03/02/2022 9:21 AM CDT) Thin prep (Pap test) 03/02/2022 9:21 AM CDT 03/04/2022 11:40 [address] CDT [address] PATHOLOG[address] [facility] - 03/09/2022 4:13 PM CDT EPIC results best viewed via link to PDF [address] [address] Tele: Maral Hamm MD - Vacuum Furnace Operator CYTOLOGY REPORT Note to Patients: This report [...] the details. Patient Name: ADELITA COSTA Address: [address] [place] [address], [place] [address] Gender: F : 1990 (Age: 31) Service: Location: [facility] #: [id number] Patient Type: [facility] SPECIMEN Taken: 03/02/2022 Reported: 03/09/2022 Physician(s): Dr. Endy Ferrara M.D. FINAL DIAGNOSIS: Specimen Type: - ThinPrep Pap and HPV w/ reflex Genotyping Statement of Specimen Adequacy: Source: Cervical/Endocervical - Satisfactory for interpretation - Endocervical/Transformation zone component absent or insufficient - Case screened using computer assisted imaging technology and manually re- screened by a programmer operator numerical control. General Categorization: - Negative for intraepithelial lesion [...] has been rescreened in accordance with the [facility] Laboratory Quality Management Program. REPORT IMAGES [...] LAB CYTOLOGY ORDERABLES Fin al Result PATHOLOGY [facility] Laboratory Receiving [address] [place] [address] * Hepatitis C antibody (10/23/2019 12:00 PM BRICK PITCHER) Hep C Ab Non-Reactiv e [facility] Blood specimen (specimen) 10/23/2019 12:00 PM BRICK PITCHER 10/23/2019 8:57 PM BRICK PITCHER Endy Ferrara MD LAB MICROBIOLOGY - GENERAL ORDERABLES Final Result Performing Organization Address City/[facility]/ZIP Co de Phone Number [facility] [address] Department [place] [address] from Last 3 Months or Most Recently Relevant to Health Maintenance Insurance [facility] H[facility] Care Teams Otr Refrigerated Cdl Truck Driver Relationship Specialty Start Date End Date No, Physician PCP - General 05/03/22 Endy Ferrara MD [address] [facility] [address] [place] [address] Referring Physician Obstetrics and Gynecology 12/08/20
--- OUTSIDE RECORDS SUMMARY | 2025-02-18 01:07 | XMS_ITS | Encounter Summary ---
Author Organization [employer] Address [address] [place] [address] Care Team Providers Care Code Enforcement Supervisor Name Role Phone Zuhair Tapia MD Primary Care Provider [phone] Encounter Details Date Type Department Care Team (Late st Contact Info) Description 12/17/2003 Outpatient Historical [facility], Karina Harrison MD NO ADDRESS ON FILE COMPLIC DEPUTY SHERIFF BUILDING GUARD ORTHO DEVICE (CMS/HCC) (Primary Dx) Social History Tobacco Use Types Packs/Day Years Used Date Smoking Tobacco: Never Assessed Comments Unknown Sex and Gender Information Value Date Recorded Sex Assigned at Not on file Legal Sex Female 3:26 AM SENIOR SOFTWARE ENGINEER Gender Identity Not on file Sexual Orientation Not on file documented as of this encounter Plan of Treatment Not on file documented as of this encounter Visit Diagnoses Diagnosis Other complications due to other internal orthopedic device, implant, and graft- Primary documented in this encounter Care Teams Code Enforcement Supervisor Relationship Specialty Start Date End Date Zuhair Tapia MD [address] [place] [address] PCP - General Family Practice 12/27/19 documented as of this encounter
--- NOTE | 2025-02-18 11:30 | P.PNAN_ITS ---
Anes - Initial Pre Proc Eval Procedure: Operation Date: 02/18/25 13:15 Proposed Procedures p Hysteroscopy Dilation and Curettage with Ronit Endometrial Ablation - Tim Rincon MD Date/Time: 02/18/25 11:30 Surgeon: Tim Rincon MD Pre Op Diagnosis: abnormal uterine bleeding Patient Data Age: 34 Gender: F Height: 1.7 m Weight: 78.6 kg Allergies Allergy/AdvReac Type Severity Reaction Status Date / Time No Known Allergies Allergy Verified 02/11/25 15:06 Home Medications ?Medication ?Instructions ?Recorded ?Confirmed ?Type duloxetine 60 mg capsule,delayed 60 mg PO DAILY #90 caps 02/04/25 02/11/25 Rx release Patient hx anesthesia problems: none Family hx anesthesia problems: none Results Review: All pre-operative results and documents have been reviewed as part of the pre- operative evaluation. [facility] Past Medical History Medical History Upper back pain, chronic Cervicalgia Axillary abscess deliv due to previous difficult deliv, deliv, curr hospitaliz Surgical History Surgical History History of hysteroscopy D & C H/O gynecological procedure IUD insertion/removal History of tonsillectomy History of section x 2 Social History Social History Smoking status: Never smoker Second hand tobacco smoke exposure: No Alcohol intake: current Alcohol use details: a glass of wine here and there Substance use: never Lack of Transportation: No Lack of Food: Never True Current Housing: I Have Housing Concerned About Future Housing: No Difficulty Paying Gas/Electric Bills: No Difficulty Paying for Meds: No Currently Unemployed: No Education: Bachelor's Degree Difficulty w/ Childcare or Family Care: No Living arrangements: with family Gender identity (if verbalized by the patient): Female Spiritual care concerns: No Anes - Eval Final PreProcedure Day of Procedure 02/18/25 11:30 Patient weight: overweight Heart: regular rate and rhythm Lungs: clear to auscultation Airway: Mallampati scale class II Neurological: alert and oriented Last oral intake: >/= 8 hours ASA classification: II Emergent: no Anesthetic plan: proceed Anesthesia type and monitoring: general GIVS and standard monitoring Results Review: All pre-operative results and documents have been reviewed as part of the pre- operative evaluation. Informed Consent: The patient's anesthetic plan and its attendant risks and benefits were discussed with the patient/family/POA. Questions were solicited and answers provided to the satisfaction of the patient/family/POA.
--- NOTE | 2025-02-18 11:32 | WPDHPUPDATE1 ---
History and Physical Update Update Date/Time: 02/18/25 11:32 History and Physical has been reviewed, including an updated exam of the patient. There are NO changes in the patient's condition. Risks, benefits, and alternatives have been discussed and questions answered. Patient agrees to proceed with procedure.
[2025-02-18 11:35] LABS: BEDSIDEPREGUCG Negative (Negative)
[2025-02-18] MEDS: ACETAMINOPHEN 500 MG TABLET 1000 MG PO (11:35)
[2025-02-18] MEDS: LACTATED RINGERS 1,000 ML 30 ML IV CONT (11:40)
--- NOTE | 2025-02-18 12:59 | S_PTH ---
PATIENT: Adelita Costa LOC: [facility] U#:[id number] AGE/SX: 34/F ROOM: RE02/18/[address]: Tim Rincon MD : 1990 BED: DIS: 02/18/2025 SPEC #: [id number] RECD: 02/18/25 13:35 STATUS: SAVANAH REQ #: [id number] ANNA: 02/18/25 12:[address]: Tim Rincon DEPT: [facility] Surgical RECD BY: Denice Gorman ENTERED: 02/18/25 13:35 SP TYPE: Surgical OTHR DR: Barrie Lopez DO Tissues: A - Endometrial Curettings B - Skin Procedures: Hematoxylin and Eosin Stain Gross and Microscopic Level 4
[2025-02-18] MEDS: LIDO 1%/EPINEPHRINE 1:100,000 20 ML VIAL 7 ML INFILTRATE (13:07)
[2025-02-18 13:15] VITALS: BP 111/71; PULSE 87; RESP 20; O2SAT 99
--- NOTE | 2025-02-18 13:17 | P.OP_ITS ---
Procedure Note - Detailed Date of Procedure 02/18/25 Pre-op Diagnosis abnormal uterine bleeding perineal mole Post-op Diagnosis Same Procedure Performed excision of perineal skin tag hysteroscopy dilation & curettage endometrial ablation Surgeon Tim Rincon MD Anesthesia General Indications abnormal uterine bleeding perineal mole Findings normal appearing intrauterine cavity. Normal tubal ostia bilaterally 2 small 2 mm mole/skin tag noted on the perineum (one on the Right vulva, one on the Left inner thigh) Description of Procedure Adelita Costa presents for the above procedure. She was counseled as to the indications, risks, benefits, and alternatives to surgery, with the risks including bleeding, infection, damage to surrounding organs, VTE, and complications of anesthesia. Her verbal and written consent was obtained. PROCEDURE: The patient was taken to the OR and general anesthesia induced. She was prepped and draped in Mateo stirrups with support of the back and bilateral lower extremities. A single tooth tenaculum was placed on the anterior lip of the cervix. The uterus sounded to 8.5 cm. The cervix was dilated with sequential Trisha dilators. Hysteroscopy, using a normal saline medi um, was performed and showed the above findings. Sharp uterine curettage was then performed and tissue placed on Telfa. The Ronit device was set to a depth of 6.0 cm. The device was inserted into t he uterus and deployed. Good fit was reassured by the device indicator. The cervical balloon was insufflated to ensure a good seal. Uterine integrity test was performed by the Ronit device and was successful. The device was then activated. The entire ablation procedure lasted 120 seconds. The cervical balloon was desufflated and the device was removed from the uterus. The hysteroscope was re-introduced to ensure adequate tissue ablation. The tenaculum was removed and hemostasis was observed. Two small skin tags/moles were noted on the perineum. The area around the moles was anesthetized with 1% lidocaine with epinepherine. The skin tags were grasped with Adson pickups and excised at their base. The excisions were then cauterized with Bovie cautery for hemostasis. The specimens were placed in formalin and sent to pathology. The patient tolerated the procedure well. Sponge, lap, and needle counts were correct. The patient had SCD's on throughout the case for VTE prophylaxis. The patient was taken to the recovery room in stable condition. Estimated Blood Loss 5 Drains No Packing No Pathology Yes (endometrial curettings ) Complications No immediate complications Condition Stable Disposition PACU [facility] Billing Surgery - Charge Forward: Surgery Billing
[2025-02-18 13:45] VITALS: BP 116/77; PULSE 52; O2SAT 100
== END 2025-02-18 14:13 | disposition home or self-care (01) ==
PROVIDERS: PCP Internal Medicine; Visit Provider Student in an Organized Health Care Education/Training Program
PROC: 0U5B8ZZ Destruction of Endometrium, Via Natural or Artificial Opening Endoscopic (ICD-10-PCS; CPT 58563; principal; 2025-02-18 13:15)
DX: N93.9 Abnormal uterine and vaginal bleeding, unspecified (principal); D23.5 Other benign neoplasm of skin of trunk
CPT/HCPCS: 58563; 11420; 88305; A9270; J2003; J2004; J2250; J2704; J3010; J7120

== ENCOUNTER 2025-02-24 11:25 | Outpatient (CLI) | payer OTHER, SELFPAY ==
[2025-02-24 12:00] LABS: Add Urine Microscopic? YES; Appearance Urine Clear (Clear); Bacteria Urine None Seen /hpf; Bilirubin Urine Negative (Negative); Blood Urine Negative (Negative); Color Urine Dark Yellow (Yellow); Glucose Urine UA Negative (Negative); Ketones Urine Negative (Negative); Leukocyte Esterase Ur Negative LEU/UL (Negative); Need Manual Microscopic Reviewed; Nitrate Urine Positive (Negative); Non Pathogenic Casts 0-2; Protein Urine Negative (Negative); RBC Urine 0-2 /hpf (0-2); Specific Grav Ur 1.004 (1.001-1.035); Squamous Epithelial Cell Urine None Seen /hpf (Few); WBC Urine 0-5 /hpf (0-3); pH Urine 7.5 (5.0-9.0)
--- OUTSIDE RECORDS SUMMARY | 2025-02-24 12:45 | XMS_ITS | Encounter Summary ---
Author Organization [employer] Address [address] [place] [address] Care Team Providers Care Auto Clutch Rebuilder Name Role Phone Zuhair Tapia MD Primary Care Provider [phone] Encounter Details Date Type Department Care Team (Late st Contact Info) Description 08/08/2003 Outpatient Historical [facility] Alysha Everett MD [address] [facility] [address] [place] [address] [place] [address] Er, Authorized P NO ADDRESS ON FILE FX MEDIAL MALLEOLUS-CLOSE (Primary Dx) Social History Tobacco Use Types Packs/Day Years Used Date Smoking Tobacco: Never Assessed Comments Unknown Sex and Gender Information Value Date Recorded Sex Assigned at Not on file 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
--- OUTSIDE RECORDS SUMMARY | 2025-02-24 12:45 | XMS_ITS | Encounter Summary ---
Author Organization [employer] Address 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
--- OUTSIDE RECORDS SUMMARY | 2025-02-24 12:45 | XMS_ITS | Continuity of Care Document ---
Author Organization [facility] Address [address] [place] [address] [place] [address] Phone Care Team Providers Care Teacher Private Name Role Phone Zuhair Tapia MD Unavailable Unavailable Allergies, Adverse Reactions, Alerts Substance Reaction Status Criticality No Known Allergies Active No Inform ation Procedures Procedure Date PREV VISIT, NEW, AGE 18-39 Advance Directives Directive Yes / No Effective Date File Name No Information Encounters Encounter Description Practice Location Reason(s) For Visit Diagnoses Date Provider Providers Copied on Encounter PREV VISIT, NEW, AGE 18-39 [facility] [place], [address], [id number], [place] tel:[phone] [facility] [place] physical (chief complaint) Encntr for general adult medical exam w/o abnormal findings Willie Moffett. [address] [place], [id number], [place]. tel:[phone] Referring Provider: Zuhair Tapia, [address], [place], [id number]. tel:[phone] Family History Family Member Type Diagnosis Age At Onset Father Problem (finding) unknown Mother Problem (finding) Alive and well Payers Payer name Insurance type Covered republican ID Authoriza tion(s) No Information Social History [...] Mental Status Date Cognitive Assessment Orientation - [place] ed to time, place, person, situation.
--- OUTSIDE RECORDS SUMMARY | 2025-02-24 12:45 | XMS_ITS | Clinical Summary ---
Author Organization [address] Address [address] [place] [address] Care Team Providers Care Microbiology Lab Assistant Name Role Phone Endy Ferrara MD Unavailable [phone] No, Physician Primary Care Provider [phone] Allergies No known active allergies Medications vits15/iron/foli [...] (05/19/2022): Added automatically from request for surgery [id number] Lactating mother 12/08/2020 Breast skin changes 12/08/2020 Axillary mass, bilateral 06/11/2020 Resolved Problems Problem Noted Date Diagnosed Date Resolved Date Encounter for supervision of normal , antepartum 12/27/2021 03/10/2022 Overview (12/27/2021): First Trimester: [] Initial Labs: Lab Results Component Value Date ABORH O Positive 10/23/2019 IDCOOMB Negative 10/11/2021 [id number] Nonreactive 10/23/2019 LABRPR Nonreactive 10/23/2019 RUBELIGG Reactive 10/23/2019 Lab Results Component Value Date HEPBSAG Nonreactive 10/23/2019 HEPCAB Non-Reactive 10/23/2019 RESSUMCFM NEGATIVE 10/23/2019 Lab Results Component Value Date WBC 9.8 10/11/2021 HGB 11.9 10/11/2021 HCT 37.4 10/11/2021 MCV 94.7 10/11/2021 LABPLAT 304 10/11/2021 Carrier Screening: Aneuploidy screeninnd Trimester: [] Anatomy ultrasound: [] Third trimester Labs: Lab Results Component Value Date [id number] 142 (H) 10/11/2021 Lab Results Component Value Date HGB 11.9 10/11/2021 LABPLAT 304 10/11/2021 Lab Results Component Value Date [id number] Nonreactive 10/23/2019 LABRPR Nonreactive 10/23/2019 [] Tdap [...] and Family Not on file 10/23/2019 Attends Latter Day Services Not on file 10/23 Active Member [...] of Binge Drinking Not on file 06/11 [place] Depression Scale Answer Date Recorded [place] Depression Scale Total 0 01/26/2022 The thought of harming myself has occurred to me . 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 Gender Identity Not on file Sexual Orientation Straight 01/24/2020 10 :25 AM CDT Obstetrics History Para Term AB IAB SAB Ectopic Multiple Livin g Live Births 3 1 1 1 1 1 1 Date Outcome GA Total Labor Labor/2nd/3rd Weight Sex Type Anes PTL [place] A1 A5 Name Clin 06/30 19 SAB 06/03 Term 41w 1d M CS-Un spec Living Alvin Last Filed Vital Signs Vital Sign Reading [...] HEPATITIS C ANTIBODY Routine 10/23/2019 12:00 PM WIRELESS STORE MANAGER Secondary amenorrhea from Last 3 Months or Most Recently Relevant to Health Maintenance Results * Pap and High Risk HPV, reflex to Genotyping (03/02/2022 9:21 AM CDT) Thin prep (Pap test) 03/02/2022 9:21 AM CDT 03/04/2022 11:40 AM CDT Narrative PATHOLOGY [facility] - 03/09/2022 4:13 PM CDT EPIC results best viewed via link to PDF [address] [address] Tele: Maral Hamm MD - Kardex Clerk CYTOLOGY REPORT Note to Patients: This report [...] the details. Patient Name: ADELITA COSTA Address: [address] [place] [address], [place] [address] Gender: F : 1990 (Age: 31) Service: Location: [facility] #: [id number] Patient Type: [facility] SPECIMEN Taken: 03/02/2022 Reported: 03/09/2022 Physician(s): Dr. Endy Ferrara M.D. FINAL DIAGNOSIS: Specimen Type: - ThinPrep Pap and HPV w/ reflex Genotyping Statement of Specimen Adequacy: Source: Cervical/Endocervical - Satisfactory for interpretation - Endocervical/Transformation zone component absent or insufficient - Case screened using computer assisted imaging technology and manually re- screened by a slag worker. General Categorization: - Negative for intraepithelial lesion [...] has been rescreened in accordance with the [facility] Laboratory Quality Management Program. REPORT IMAGES [...] LAB CYTOLOGY ORDERABLES Fin al Result PATHOLOGY [facility] Laboratory Receiving [address] [place] [address] * Hepatitis C antibody (10/23/2019 12:00 PM WIRELESS STORE MANAGER) Hep C Ab Non-[facility] e [facility] Blood specimen (specimen) 10/23/2019 12:00 PM WIRELESS STORE MANAGER 10/23/2019 8:57 PM WIRELESS STORE MANAGER Endy Ferrara MD LAB MICROBIOLOGY - GENERAL ORDERABLES Final Result Performing Organization Address City/[facility]/ZIP Co de Phone Number [facility] [address] [place] [address] from Last 3 Months or Most Recently Relevant to Health Maintenance [facility] HMO Care Teams Microbiology Lab Assistant Relationship Specialty Start Date End Date No, Physician PCP - General 05/03/22 Endy Ferrara MD [address] [facility] [address] [place] [address] Referring Physician Obstetrics and Gynecology 12/08/20
--- OUTSIDE RECORDS SUMMARY | 2025-02-24 12:45 | XMS_ITS | Clinical Summary ---
Author Organization [facility] Address [address] [place] [address] Phone Care Team Providers Care Wood Chopper Name Role Phone Zuhair Tapia MD Primary Care Provider [phone] Allergies No known active allergies Medications vit-iron [...] CDT 2 Active naloxone (NARCAN) 4 mg/spray [place], Non-Aerosol Administer 1 spray into affected nostril(s) [...] declined 06/02/2020 How often do you attend tenriism or mormonism serv ices? 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 Gender Identity Not on file Sexual Orientation [...] Advance Directives For more information, please contact: [phone] * Full Code (Latest Code Status on File) Date Activated Date Inactivated Comments 01/18/2022 12:40 PM 01/20/2022 2:50 PM * Full Code Date Activated Date Inactivated Comments 01/12/2022 12:01 PM 01/12/2022 4:28 PM * Full Code Date Activated Date Inactivated Comments 06/03/2020 11:54 PM 06/06/2020 2:59 PM * Full Code Date Activated Date Inactivated Comments 06/02/2020 9:11 AM 06/03/2020 11:54 PM Care Teams Wood Chopper Relationship Specialty Start Date End Date Zuhair Tapia MD [address] [place], [place] [address] [address] PCP - General Family Practice 12/27/19
--- OUTSIDE RECORDS SUMMARY | 2025-02-24 12:45 | XMS_ITS | Referral Summary ---
Author Organization [address] Address [address] [place] [address] Care Team Providers Care Canvas Cutter Machine Name Role Phone Endy Ferrara MD Unavailable No, Physician Primary Care Provider [phone] Allergies No known active allergies Medications vits15/iron/foli [...] (05/19/2022): Added automatically from request for surgery [id number] Lactating mother 12/08/2020 Breast skin changes 12/08/2020 Axillary mass, bilateral 06/11/2020 Resolved Problems Problem Noted Date Diagnosed Date Resolved Date Encounter for supervision of normal , antepartum 12/27/2021 03/10/2022 Overview (12/27/2021): First Trimester: [] Initial Labs: Lab Results Component Value Date ABORH O Positive 10/23/2019 IDCOOMB Negative 10/11/2021 [id number] Nonreactive 10/23/2019 LABRPR Nonreactive 10/23/2019 RUBELIGG Reactive 10/23/2019 Lab Results Component Value Date HEPBSAG Nonreactive 10/23/2019 HEPCAB Non-Reactive 10/23/2019 RESSUMCFM NEGATIVE 10/23/2019 Lab Results Component Value Date WBC 9.8 10/11/2021 HGB 11.9 10/11/2021 HCT 37.4 10/11/2021 MCV 94.7 10/11/2021 LABPLAT 304 10/11/2021 Carrier Screening: Aneuploidy screeninnd Trimester: [] Anatomy ultrasound: [] Third trimester Labs: Lab Results Component Value Date [id number] 142 (H) 10/11/2021 Lab Results Component Value Date HGB 11.9 10/11/2021 LABPLAT 304 10/11/2021 Lab Results Component Value Date [id number] Nonreactive 10/23/2019 LABRPR Nonreactive 10/23/2019 [] Tdap [...] and Family Not on file 10/23/2019 Attends Yazdanism Services Not on file 10/23 Active Member [...] of Binge Drinking Not on file 06/11 [place] Depression Scale Answer Date Recorded [place] Depression Scale Total 0 01/26/2022 The thought of harming myself has occurred to me . 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 Gender Identity Not on file Sexual Orientation [...] C ANTIBODY Routine 10/23/2019 12:00 PM SUPERVISOR PARACHUTE MANUFACTURING Secondary amenorrhea from Last 3 Months or Most Recently Relevant to Health Maintenance Results * Pap and High Risk HPV, reflex to Genotyping (03/02/2022 9:21 AM CDT) Thin prep (Pap test) 03/02/2022 9:21 AM CDT 03/04/2022 11:40 AM CDT Narrative PATHOLOGY [facility] - 03/09/2022 4:13 PM CDT EPIC results best viewed via link to PDF [address] [address] Tele: Maral Hamm MD - Bariatric Coordinator CYTOLOGY REPORT Note to Patients: This report [...] the details. Patient Name: ADELITA COSTA Address: [address] [place] [address], [place] [address] Gender: F : 1990 (Age: 31) Service: Location: N : [id number] Hospital #: [id number] Patient Type: [facility] SPECIMEN Taken: 03/02/2022 Reported: 03/09/2022 Physician(s): Dr. Endy Ferrara M.D. FINAL DIAGNOSIS: Specimen Type: - ThinPrep Pap and HPV w/ reflex Genotyping Statement of Specimen Adequacy: Source: Cervical/Endocervical - Satisfactory for interpretation - Endocervical/Transformation zone component absent or insufficient - Case screened using computer assisted imaging technology and manually re- screened by a glass pulverizer equipment operator. General Categorization: - Negative for intraepithelial lesion [...] been rescreened in accordance with the [facility] Laboratory Quality Management Program. REPORT [...] CYTOLOGY ORDERABLES Fin al Result PATHOLOGY [facility] Laboratory Receiving [address] [place] [address] * Hepatitis C antibody (10/23/2019 12:00 PM SUPERVISOR PARACHUTE MANUFACTURING) Hep C Ab Non-Reactiv e Non-Reactiv e [facility] Blood specimen (specimen) 10/23/2019 12:00 PM SUPERVISOR PARACHUTE MANUFACTURING 10/23/2019 8:57 PM SUPERVISOR PARACHUTE MANUFACTURING Endy Ferrara MD LAB MICROBIOLOGY - GENERAL ORDERABLES Final Result Performing Organization Address [facility] Co de Phone Number [facility] [address] Department [place] [address] from Last 3 Months or Most Recently Relevant to Health Maintenance [facility] HMO [facility] H[facility] Care Teams Canvas Cutter Machine Relationship Specialty Start Date End Date No, Physician PCP - General 05/03/22 Endy Ferrara MD [address] [facility] [address] [place] [address] Referring Physician Obstetrics and Gynecology 12/08/20
--- OUTSIDE RECORDS SUMMARY | 2025-02-24 12:45 | XMS_ITS | Clinical Summary ---
Author Organization [facility] Address [address] [place] [address] Care Team Providers Care Fish Boning Machine Feeder Name Role Phone Zuhair Tapia MD Primary Care Provider [phone] Source Comments [facility],non-owned Affiliates and Associated Physician Practices is amultiple site organization consisting of ambulatory clinics and hospital sitesin [place], [place], [place] and [place]. This disclosure is being madepursuant to the Care Everywhere program and may not contain all information available regarding this patient. Last updated 18.[facility] Allergies No known active allergies Medications * [...] on file Legal Sex Female 7:40 AM DEPORTATION OFFICER Gender Identity Not on file Sexual Orientation [...] patient's age to complete this topic Insurance [facility] AETNA Care Teams Fish Boning Machine Feeder Relationship Specialty Start Date End Date Zuhair Tapia MD PCP - General 06/26/19
--- OUTSIDE RECORDS SUMMARY | 2025-02-24 12:45 | XMS_ITS | Encounter Summary ---
Author Organization [employer] Address 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
== END 2025-02-24 11:26 | disposition home or self-care (01) ==
LOC: ANHLAB 11:26
PROVIDERS: PCP Internal Medicine; Visit Provider Obstetrics & Gynecology
DX: R30.0 Dysuria (principal)
CPT/HCPCS: 81001; 87086; 87181

== ENCOUNTER 2025-05-01 09:16 | Emergency (ER) | payer OTHER, SELFPAY ==
[2025-05-01 09:28] VITALS: BP 116/81; PULSE 98; RESP 16; TEMP 36.5
[2025-05-01 09:38] LABS: EDSTREPNEGPOS1 Negative (Negative)
--- NOTE | 2025-05-01 09:41 | PC.NURSE ---
0910 Patient taking ice chips without nausea or vomiting.
--- NOTE | 2025-05-01 09:56 | ED.URI ---
HPI - URI/Sore Throat General Chief Complaint: Upper Respiratory Infection Stated Complaint: Sore Throat Time Seen by Provider: 05/01/25 09:48 Source: patient and RN notes reviewed Mode of arrival: ambulatory Limitations: no limitations History of Present Illness HPI Narrative: Patient presents today complaining of sore throat, postnasal drainage, and right lymph node pain. Symptoms began 2 weeks ago. States symptoms got better and then worsened again, and are worse at night. Denies cough, rhinorrhea, shortness of breath. Sore throat pain is worse with swallowing. Currently rates her pain 4/10 has tried Aleve, ibuprofen, Sinus medicine, and Zyrtec without improvement. Related Data Allergies Allergy/AdvReac Type Severity Reaction Status Date / Time No Known Allergies Allergy Verified 05/01/25 09:26 PMF Past Medical History Medical History Upper back pain, chronic Cervicalgia Axillary abscess deliv due to previous difficult deliv, deliv, curr hospitaliz Surgical History Surgical History History of endometrial ablation History of hysteroscopy D & C H/O gynecological procedure IUD insertion/removal History of tonsillectomy History of section x 2 Social History Social History Smoking status: Never smoker Second hand tobacco smoke exposure: No Alcohol intake: current Alcohol use details: a glass of wine here and there Substance use: never Lack of Transportation: No Lack of Food: Never True Current Housing: I Have Housing Concerned About Future Housing: No Difficulty Paying Gas/Electric Bills: No Difficulty Paying for Meds: No Currently Unemployed: No Education: Bachelor's Degree Difficulty w/ Childcare or Family Care: No Living arrangements: with family Gender identity (if verbalized by the patient): Female Spiritual care concerns: No Comments At time of signature, I have reviewed and agree with nursing past medical, surgical, social and family history unless otherwise noted. Please see nursing chart for further information. There is no relevant family history pertinent to the presenting complaint Exam Narrative: GENERAL: Well-appearing, well-nourished, and in no acute distress. HEAD: Normocephalic, atraumatic. EYES: EOMI. No redness or drainage. Conjunctivae normal. ENT: Mucous membranes pink and moist. Nares clear. No rhinorrhea. TMs normal bilaterally. Throat mildly erythematous without edema or exudate. Uvula midline. Tonsils abscess NECK: Normal AROM. Supple. Right tonsillar lymphadenitis with tenderness to palpation. CHEST: No respiratory distress. Clear to auscultation. HEART: Regular rate and rhythm. No murmur appreciated. EXTREMITIES: Normal range of motion. No edema. SKIN: Warm, dry, no rash. Capillary refill normal. Normal skin turgor. NEURO: No focal deficits. Alert and oriented x3. Gait steady. PSYCH: Normal affect. No signs of depression or anxiety. Course Course Level of Care: Express Care Visit Vital Signs Vital signs: Vital Signs Temperature 97.7 F 05/01/25 09:28 Pulse Rate 98 05/01/25 09:28 Respiratory Rate 16 05/01/25 09:28 Blood Pressure 116/81 05/01/25 09:28 Oxygen Delivery Room Air 05/01/25 09:28 Temperature 97.7 F 05/01/25 09:28 Pulse Rate 98 05/01/25 09:28 Respiratory Rate 16 05/01/25 09:28 Blood Pressure 116/81 05/01/25 09:28 Oxygen Delivery Room Air 05/01/25 09:28 Reviewed MDM - URI/Sore Throat MDM Narrative Medical decision making narrative: 34-year-old female patient presents with a 2 week history of sore throat, postnasal drainage, and lymph node pain that improved then worsened again, to suggest double sickening/possible secondary bacterial infection. OTC medications have not been helpful. Pain increases with swallowing. Upon exam, patient is throat is very mildly erythematous without edema or exudate. Also tender in the right tonsillar lymph node. Patient will be started on some Augmentin and prednisone. Rapid strep negative. Culture pending. Vital signs stable. Anticipatory guidance given. Differential Diagnosis Differential diagnosis: Likely upper respiratory infection, otitis media, sinusitis, viral infection, pharyngitis and other (Strep throat) Lab Data Attestation: I reviewed the patient's lab results. Labs: Lab Results 05/01/25 Range/Units 09:36 POC Grp A Strep Screen Negative (Negative) Critical Care Time Critical Care Time Critical Care Time: No Discharge Plan Discharge Clinical Impression: Acute lymphadenitis Pharyngitis Qualifiers: Pharyngitis/tonsillitis etiology: unspecified etiology Qualified Code(s): J02.9 - Acute pharyngitis, unspecified Patient Disposition: Home Condition: Stable Instructions: Antibiotic Form, Pharyngitis (ED) Additional Instructions: Please take the Augmentin and prednisone as directed. You may continue OTC medications as needed. Follow-up with your PCP next week if symptoms persist. Go to the ER immediately if you develop shortness of breath, difficulty swallowing, or develops a fever greater than 100.3. Patient Language: Urdu Prescriptions: New prednisone 20 mg tablet 40 mg PO DAILY 5 Days Qty: 10 0RF amoxicillin-pot clavulanate 875-125 mg tablet 1 tablet PO Q12H 7 Days Qty: 14 0RF No Action duloxetine 60 mg capsule,delayed release(DR/EC) 60 mg PO DAILY Qty: 90 3RF Follow-up/Referrals: Barrie Lopez DO [Primary Care Provider, Internal Medicine] Time of Disposition: 10:03
== END 2025-05-01 10:07 | disposition home or self-care (01) ==
PROVIDERS: Emergency Provider Nurse Practitioner; PCP Internal Medicine
DX: L04.0 Acute lymphadenitis of face, head and neck (principal); J02.9 Acute pharyngitis, unspecified
CPT/HCPCS: 87081; 87880; 99213; G0463